=== PATIENT | male | born 1945 | race Caucasian/White ===

== ENCOUNTER 2021-04-01 13:56 | Inpatient (IN) | payer MEDICARE, OTHER ==
[~2021-04-01] VITALS: Ht 165.1 cm; Wt 70.5 kg
[2021-04-01] MEDS ORDERED: ATOR10TA60 PO (14:36)
[2021-04-01] MEDS ORDERED: OMEG1CAP50 PO (14:36)
[2021-04-01] MEDS ORDERED: MELA10CA PO (14:36)
[2021-04-01] MEDS ORDERED: BISA10SU4 RC (14:36)
[2021-04-01] MEDS ORDERED: ROPI0.5T4 PO (14:36)
[2021-04-01] MEDS ORDERED: ASPI-630 PO (14:36)
[2021-04-01] MEDS ORDERED: METO25TA4 PO (14:36)
[2021-04-01] MEDS ORDERED: MAGN24003 PO (14:36)
[2021-04-01] MEDS ORDERED: LORA2ORA8 IM (14:36)
[2021-04-01] MEDS ORDERED: [UNRECOGNIZED DRUG - CODE] PO (14:36)
[2021-04-01] MEDS ORDERED: DIVA500T2 PO (14:36)
[2021-04-01] MEDS ORDERED: DONE10TA7 PO (14:36)
[2021-04-01] MEDS ORDERED: POLY17PO5 PO (14:36)
[2021-04-01] MEDS ORDERED: CLOP75TA PO (14:36)
[2021-04-01] MEDS ORDERED: HALOPERIDOL 5 MG/ML IM (14:36)
[2021-04-01] MEDS ORDERED: NIAC500T PO (14:36)
--- NOTE | 2021-04-01 15:27 | NUR ---
Nsg Note; Admission Admission Note with Justification for Admission to [facility] Patient admitted to [facility] for protective oversight for emergency stabilization of acute psychiatric crisis. Pt admitted from: [facility] Mode of arrival: Secure Transport Accompanied By: Secure Transport Precipitating behaviors that initiated intake and admission: resistive and combative with cares, screaming/yelling/cursing, hitting staff Description of failure of out patient attempts at stabilization in previous setting list behavior and medication trials: medication changes, IM psych meds, ER visit, allowed to sleep late Behaviors and assessment findings upon admission: resistive, not talkative, answered name as "Bill Seven", Plan: Admit for protective oversight for adjustment and stabilization of medications, behaviors and mood. Intense treatment regimen including groups, medication adjustments, therapy, consistent regimen for ADL's, self care, and sleep hygiene. Daily monitoring by Inpatient staff, Psychiatry, and Medical Physician. Pt arrived at 1500 via amb accomp by transport personnel. Report received from Stacey HERR at [facility] at 0161
[2021-04-01] MEDS ORDERED: MAGNESIUM HYDROXIDE 2,400 MG/30 ML ORAL.SUSP. PO PRN (15:45)
[2021-04-01] MEDS ORDERED: METHYL SALICYLATE/MENTHOL TOPICAL OINTMENT 57GM TUBE. TP PRN (15:45)
[2021-04-01] MEDS ORDERED: ACETAMINOPHEN 325 MG TABLET PO PRN (15:45)
[2021-04-01] MEDS ORDERED: MAG HYDROX/AL HYDROX/SIMETH 30 ML ORAL.SUSP PO PRN (15:45)
[2021-04-01] MEDS ORDERED: BISACODYL 10 MG SUPP.RECT RC PRN (16:00)
[2021-04-01] MEDS ORDERED: POLYETHYLENE GLYCOL 3350 17 GM PACKET. PO PRN (16:00)
[2021-04-01 16:09] VITALS: BP 103/66
[2021-04-01 18:24] LABS: BASO # 0.1 x10^3/uL (0.0-0.2); BASO % 1 % (0-3); EOS # 0.1 x10^3/uL (0.0-0.7); EOS % 1 % (0-3); HEMATOCRIT 41.4 % (39.0-53.0); HEMOGLOBIN 13.4 g/dL (13.0-17.5); LYMPH # 1.1 x10^3/uL (1.0-4.8); LYMPH % 12 % (24-48); MEAN CORPUSCULAR HEMOGLOBIN 31 pg (25-35); MEAN CORPUSCULAR HGB CONC 33 g/dL (31-37); MEAN CORPUSCULAR VOLUME 96 fL (79-100); MONO # 1.1 x10^3/uL (0.0-1.1); MONO % 12 % (0-9); NEUT # 6.8 x10^3uL (1.8-7.7); NEUT % 75 % (31-73); PLATELET COUNT 192 x10^3/uL (140-400); RED BLOOD COUNT 4.31 x10^6/uL (4.30-5.70); RED CELL DISTRIBUTION WIDTH 14.5 % (11.5-14.5)
[2021-04-01 18:41] LABS: ALBUMIN 3.3 g/dL (3.4-5.0); ALBUMIN/GLOBULIN RATIO 0.8 (1.0-1.7); ALK PHOS 83 U/L (46-116); ALT (SGPT) 22 U/L (16-63); ANION GAP -1 (6-14); AST (SGOT) 14 U/L (15-37); BLOOD UREA NITROGEN 42 mg/dL (8-26); BUN/CREATININE RATIO 18 (6-20); CALCIUM 9.1 mg/dL (8.5-10.1); CARBON DIOXIDE 27 mmol/L (21-32); CHLORIDE 106 mmol/L (98-107); CREATININE 2.3 mg/dL (0.7-1.3); GFR 27.7; GLUCOSE 122 mg/dL (70-99); MAGNESIUM 2.6 mg/dL (1.8-2.4); POTASSIUM 4.5 mmol/L (3.5-5.1); SODIUM 132 mmol/L (136-145); TOTAL BILIRUBIN 0.2 mg/dL (0.2-1.0); TOTAL PROTEIN 7.3 g/dL (6.4-8.2)
[2021-04-01 19:01] LABS: VAL ACID 54 mcg/mL (50-100)
[2021-04-01] MEDS: MELATONIN 3 MG TABLET PO SCH (20:47)
[2021-04-01] MEDS: NIACIN ER 500 MG TABLET.ER PO SCH (20:48)
[2021-04-01] MEDS: rOPINIRole 0.5 MG TABLET. PO SCH (20:48)
[2021-04-01] MEDS: METOPROLOL TART IMMED RELEASE 25 MG TABLET. PO SCH (20:48)
[2021-04-01] MEDS: DIVALPROEX 125 MG CAP.SPRINK PO SCH (20:49)
[2021-04-01] MEDS ORDERED: DIVALPROEX SODIUM 125 MG TABLET.DR. PO SCH (21:00)
--- NOTE | 2021-04-01 21:16 | PDOC ---
Exam Note: Perfecto Note: Please also refer to the separate dictated note~for this date of service dictated separately.~Patient seen individually. Discussed the patient with Nursing staff reviewed the chart.~Reviewed interim history and current functioning. Reviewed vital signs,~Labs/ Radiology~and current medications noted below. Continue current treatment with the changes noted in the dictated addendum note Assessment: Vital Signs/I&O: Vital Signs Date Time Temp Pulse Resp B/P (MAP) Pulse Ox O2 Delivery O2 Flow Rate FiO2 04/01/21 20:48 75 103/66 04/01/21 16:09 97.2 20 98 Labs: Laboratory Tests Test 04/01/21 18:10 White Blood Count 9.0 x10^3/uL (4.0-11.0) Red Blood Count 4.31 x10^6/uL (4.30-5.70) Hemoglobin 13.4 g/dL (13.0-17.5) Hematocrit 41.4 % (39.0-53.0) Mean Corpuscular Volume 96 fL (79-100) Mean Corpuscular Hemoglobin 31 pg (25-35) Mean Corpuscular Hemoglobin Concent 33 g/dL (31-37) Red Cell Distribution Width 14.5 % (11.5-14.5) Platelet Count 192 x10^3/uL (140-400) Neutrophils (%) (Auto) 75 % (31-73) H Lymphocytes (%) (Auto) 12 % (24-48) L Monocytes (%) (Auto) 12 % (0-9) H Eosinophils (%) (Auto) 1 % (0-3) Basophils (%) (Auto) 1 % (0-3) Neutrophils # (Auto) 6.8 x10^3uL (1.8-7.7) Lymphocytes # (Auto) 1.1 x10^3/uL (1.0-4.8) Monocytes # (Auto) 1.1 x10^3/uL (0.0-1.1) Eosinophils # (Auto) 0.1 x10^3/uL (0.0-0.7) Basophils # (Auto) 0.1 x10^3/uL (0.0-0.2) D-Dimer (Rosalind) 2.00 mg/L (0.00-0.50) H Sodium Level 132 mmol/L (136-145) L Potassium Level 4.5 mmol/L (3.5-5.1) Chloride Level 106 mmol/L (98-107) Carbon Dioxide Level 27 mmol/L (21-32) Anion Gap -1 (6-14) L Blood Urea Nitrogen 42 mg/dL (8-26) H Creatinine 2.3 mg/dL (0.7-1.3) H Estimated GFR (Cockcroft-Gault) 27.7 BUN/Creatinine Ratio 18 (6-20) Glucose Level 122 mg/dL (70-99) H Calcium Level 9.1 mg/dL (8.5-10.1) Magnesium Level 2.6 mg/dL (1.8-2.4) H Total Bilirubin 0.2 mg/dL (0.2-1.0) Aspartate Amino Transferase (AST) 14 U/L (15-37) L Alanine Aminotransferase (ALT) 22 U/L (16-63) Alkaline Phosphatase 83 U/L (46-116) Total Protein 7.3 g/dL (6.4-8.2) Albumin 3.3 g/dL (3.4-5.0) L Albumin/Globulin Ratio 0.8 (1.0-1.7) L Valproic Acid Level 54 mcg/mL (50-100) Valproic Acid Last Dose Date 04/01/21 Valproic Acid Last Dose Time 0900 Current Medications: Meds: Current Medications Medications (Trade) Dose Ordered Sig/Loretta Route PRN Reason Start Time Stop Time Status Last Admin Dose Admin Metoprolol Tartrate (Lopressor) 12.5 mg BID PO 04/01/21 21:00 04/01/21 20:48 Niacin (Slo-Niacin) 500 mg QHS PO 04/01/21 21:00 04/01/21 20:48 Ropinirole HCl (Requip) 0.5 mg HS PO 04/01/21 21:00 04/01/21 20:48 Melatonin (Melatonin) 9 mg QHS PO 04/01/21 21:00 04/01/21 20:47 Divalproex Sodium (Depakote Sprinkles) 375 mg TID PO 04/01/21 21:00 04/01/21 20:49 I have reviewed the current psychotropics carefully including drug interactions. Risk benefit ratio favors no change other than as noted in my dictated progress note. Diagnosis: Problems: (1) Impulse control disorder (2) Anxiety disorder, unspecified (3) Major neurocognitive disorder GISELL GAXIOLA MD Apr 01, 2021 21:16
--- NOTE | 2021-04-01 22:35 | NUR ---
This evening pt walked quietly in the hallway for several hours without assistance and would sometimes try to open locked doors or move furniture. He had very little response to persons talking to him and did not answer questions. He was cooperative with meds crushed in applesauce then said good after taking them. At [facility] he was not very cooperative and tried to hit staff several times. When transferring to bed he would not assist staff at all. He laid quietly in his room for awhile then fell to sleep.
[2021-04-02 06:02] VITALS: BP 174/88
--- NOTE | 2021-04-02 06:14 | NUR ---
Pt has slept well tonight. When awaken for am cares he was combative trying to hit, kick, bite, pinch staff as well a grabbing any hand hold he can find and not letting go. He has great overall strength and required 4 staff to safely perform cares. He remains mainly non verbal only said a random word. Small healing skin tear on L wrist was opened a few drops of bleeding and sterile bandage applied.
[2021-04-02] MEDS: DIVALPROEX 125 MG CAP.SPRINK PO SCH ×5 (11:04→20:43)
[2021-04-02] MEDS: METOPROLOL TART IMMED RELEASE 25 MG TABLET. PO SCH ×3 (11:05→20:44)
[2021-04-02] MEDS: OMEGA-3 FATTY ACIDS/FISH OIL 1,000 MG CAPSULE. PO SCH ×2 (11:07→11:30)
[2021-04-02] MEDS: ATORVASTATIN CALCIUM 10 MG TABLET. PO SCH ×2 (11:07→11:30)
[2021-04-02] MEDS: ASPIRIN CHEWABLE 81 MG TABLET. PO SCH ×2 (11:07→11:30)
[2021-04-02] MEDS: DONEPEZIL HCL 10 MG TABLET PO SCH ×2 (11:07→11:30)
[2021-04-02] MEDS: CLOPIDOGREL BISULFATE 75 MG TABLET PO SCH ×2 (11:07→11:30)
[2021-04-02] MEDS: PSYLLIUM SEED (WITH SUGAR) PACKET. PO SCH ×2 (11:08→11:30)
[2021-04-02 12:29] LABS: THYROID STIM HORMONE (TSH) 1.762 uIU/mL (0.358-3.740)
--- NOTE | 2021-04-02 14:49 | CONS ---
DATE OF CONSULTATION: 04/02/2021 ATTENDING PHYSICIAN: Dr. Gaxiola and Dr. Mcdonald. We are asked to see this patient for medical consultation. HISTORY OF PRESENT ILLNESS: The patient is aged 76. He has profound dementia. He lives in a senior living in [place], [place]. His senior living physician is Dr. Travis. He was sent here because he is delusional, combative towards the staff, cursing at them. He is sleeping quite a bit and refuses to cooperate. When I went to see him, he was quite passive, aggressive and not wanting to get up and cooperative. PAST MEDICAL HISTORY: Significant for Parkinson's disease, cardiomyopathy, coronary artery disease, dementia, previous CO, prostate cancer, hypertension, hyperlipidemia. ALLERGIES: He has no known drug allergies. CURRENT MEDICATIONS: Include aspirin, Lipitor, bisacodyl, Plavix, Depakote, Aricept, lorazepam, melatonin, metoprolol, niacin, omega 3 fish oil, MiraLax, psyllium, ropinirole and Haldol p.r.n. SOCIAL HISTORY: He is a nonsmoker or nondrinker. FAMILY HISTORY: Unobtainable. REVIEW OF SYSTEMS: Unobtainable due to the patient's condition. PHYSICAL EXAMINATION: GENERAL: When I saw him, this is an elderly gentleman who is curled up in a position. He refused to follow any commands. VITAL SIGNS: Initial blood pressure was 174/86, pulse is 82 and regular. He was afebrile, oxygen saturation 99% on room air. HEENT: Head is without trauma. Pupils are reactive. Sclerae nonicteric. Oropharynx clear. No obstruction. NECK: Supple. No stridor. LUNGS: Shallow respirations. CARDIOVASCULAR: Regular heart tones. No gallops. Tones are distant. ABDOMEN: Soft. No guarding or rebound tenderness. EXTREMITIES: Show no cyanosis or edema. He is incontinent. NEUROLOGIC: Wearing adult diapers. SKIN: Warm and dry. PERTINENT LABORATORY STUDIES: The hemoglobin is 13.4 g/dL with a white count of 9000. Electrolytes showed a sodium 132 mEq, potassium 4.5 mEq, creatinine is 2.3 mg/dL, BUN 42. I do not know what his baseline is. ASSESSMENT: 1. This 76-year-old gentleman has profound dementia with behavioral issues, agitation and oppositional defiant behavior. 2. Chronic kidney disease stage 3. I do not know what his baseline is. 3. Essential hypertension. 4. Generalized debilitation. RECOMMENDATIONS: 1. I have reviewed his medication. At this time, there does not appear to be any antihypertensive meds that will cause his creatinine be elevated. These other meds should be continued as same. 2. He is stable from medical standpoint. Thank you again for asking me to see the patient for medical consultation. We shall gladly follow along during his inpatient stay, he is a DNR per advanced directive, we will respect these wishes. JEANNETTE/KIYA/PATRICE DR: Trish TID: [id number] CC: GISELL GAXIOLA MD
[2021-04-02 15:29] VITALS: BP 145/84
--- NOTE | 2021-04-02 17:29 | HP ---
DATE OF SERVICE: 04/02/2021 ADMIT DATE: 04/01/2021 PSYCHIATRIC ADMISSION HISTORY/EVALUATION This is a late entry, date of service 04/01/2021, covers elements not covered in my initial note 04/01/2021. I met with the patient on the evening of 04/01 for this evaluation. IDENTIFYING DATA: Previously discussed with Jacey Meyer, field marketing coordinator and nursing staff and reviewed information from [facility] where the patient was residing and referred to us by his primary care physician. The patient has a history of major neurocognitive disorder, Alzheimer's, vascular with delusion, depression. He has been extremely agitated at the facility, combative with staff and with cares, delusional, cursing, screaming, injuring himself. Behaviors were deemed unmanageable, dangerous having failed outpatient psychiatric interventions. He is referred for inpatient psychiatric stabilization. CHIEF COMPLAINT: "No." The patient is extremely confused, bent over a heavy chair in the hallway, trying to lift it. Totally oblivious of his surroundings unable to respond to my repeated questioning about orientation questions and would not even respond when asked about his last name. HISTORY OF PRESENT ILLNESS: The patient has a history of dementia, Alzheimer's, vascular type. He has been residing at the above facility for some time, but recently getting more confused, agitated, paranoid, delusional. He has had some sleep and appetite changes. Appeared psychotic aggressive, disruptive and dangerous in his behaviors. No clear history of bipolar disorder, suicidal or homicidal ideation. PAST PSYCHIATRIC HISTORY: As above. MEDICAL HISTORY: Frequent constipation, hypertension, hyperlipidemia, status post HI, chronic kidney disease, CA prostate, cardiomyopathy. ACCU-CHEKS: None. CODE STATUS: DNR. DIET: Regular finger foods. Takes medications crushed in hidden. Ambulates independently. CURRENT PSYCHOTROPICS: Depakote 375 mg t.i.d., melatonin 10 mg at bedtime, Requip 0.5 mg at bedtime, Aricept 10 mg a day. FAMILY HISTORY: Noncontributory. SOCIAL HISTORY: No history of alcohol, drug abuse, physical, sexual, elder abuse history is noted. He is not known to be a perpetrator. REACTION TO HOSPITALIZATION: The patient oblivious of it. ASSETS: Stable living at the facility, supportive family. REVIEW OF SYSTEMS: No CV, , pulmonary, eye, ENT system symptoms on review. Reliability poor. MENTAL STATUS EXAM: Oriented to himself. Insight, judgment, recent and remote memory, attention, concentration, fund of knowledge poor consistent with his diagnosis. IMPRESSION: Major neurocognitive disorder, Alzheimer, vascular with delusion, depression, behavioral disturbance, anxiety disorder, unspecified; impulse control disorder, unspecified. Rest as above. PLAN: Admit to Geropsychiatry Unit at [facility]. I will see the patient daily individually from a psychiatric standpoint, medical followup with Dr. Ortega/Dr. Mcdonald. Continue patient on his current psychotropics. Observe baseline and then adjust psychotropics as clinically indicated. ESTIMATED LENGTH OF STAY: 10-12 days. DISPOSITION PLANS: Back to nursing facility when stable. VIVIANE DR: Chuck TID: [id number]
--- NOTE | 2021-04-02 18:30 | NUR ---
Patient slept until just after 1600. At that time staff got him out of bed, he was combative with cares, attempting to hit, bite, and kick staff. His brief and clothes were changed, and then he was sat on the opposite bed and his bed was stripped. About ten minutes later, staff reported he was bleeding; on inspection patient had a skin tear on the posterior, medial edge of his left hand about the size of a dime. Wound was cleaned and dressed. Patient remained withdrawn to his room for the remainder of the shift. Will continue to monitor and report to oncoming shift.
[2021-04-02] MEDS: MELATONIN 3 MG TABLET PO SCH (20:43)
[2021-04-02] MEDS: NIACIN ER 500 MG TABLET.ER PO SCH (20:44)
[2021-04-02] MEDS: rOPINIRole 0.5 MG TABLET. PO SCH (20:44)
--- NOTE | 2021-04-02 21:14 | PDOC ---
Exam Note: Perfecto Note: Please also refer to the separate dictated note~for this date of service dictated separately.~Patient seen individually. Discussed the patient with Nursing staff reviewed the chart.~Reviewed interim history and current functioning. Reviewed vital signs,~Labs/ Radiology~and current medications noted below. Continue current treatment with the changes noted in the dictated addendum note Assessment: Vital Signs/I&O: Vital Signs Date Time Temp Pulse Resp B/P (MAP) Pulse Ox O2 Delivery O2 Flow Rate FiO2 04/02/21 20:44 92 145/84 04/02/21 15:29 97.9 18 96 Room Air I & O 04/01/21 04/01/21 04/02/21 15:00 23:00 07:00 Intake Total 0 ml Balance 0 ml Current Medications: Meds: Current Medications Medications (Trade) Dose Ordered Sig/Loretta Route PRN Reason Start Time Stop Time Status Last Admin Dose Admin Acetaminophen (Tylenol) 650 mg PRN Q6HRS PRN PO MILD PAIN / TEMP > 100.3'F 04/01/21 15:45 Multi-Ingredient Ointment (Analgesic [place]) 1 gaurav PRN QID PRN TP MUSCLE PAIN 04/01/21 15:45 Al Hydroxide/Mg Hydroxide (Mylanta Plus Xs) 15 ml PRN AFTMEALHC PRN PO DYSPEPSIA 04/01/21 15:45 Magnesium Hydroxide (Milk Of Magnesia) 2,400 mg PRN QHS PRN PO CONSTIPATION 04/01/21 15:45 Aspirin (Aspirin Chewable) 81 mg DAILY PO 04/02/21 09:00 Atorvastatin Calcium (Lipitor) 10 mg DAILY PO 04/02/21 09:00 Bisacodyl (Dulcolax Supp) 10 mg PRN DAILY PRN RC CONSTIPATION 04/01/21 16:00 Clopidogrel Bisulfate (Plavix) 75 mg DAILY PO 04/02/21 09:00 Donepezil HCl (Aricept) 10 mg DAILY PO 04/02/21 09:00 Metoprolol Tartrate (Lopressor) 12.5 mg BID PO 04/01/21 21:00 04/02/21 20:44 Niacin (Slo-Niacin) 500 mg QHS PO 04/01/21 21:00 04/02/21 20:44 Fish Oil (Fish Oil) 2,000 mg DAILY PO 04/02/21 09:00 04/02/21 19:15 DC Polyethylene Glycol (miraLAX) 17 gm PRN DAILY PRN PO CONSTIPATION 04/01/21 16:00 Ropinirole HCl (Requip) 0.5 mg HS PO 04/01/21 21:00 04/02/21 20:44 Divalproex Sodium (Depakote) 375 mg TID PO 04/01/21 21:00 04/01/21 20:03 DC Melatonin (Melatonin) 9 mg QHS PO 04/01/21 21:00 04/02/21 20:43 Psyllium Hydrophilic Mucilloid (Metamucil) 1 pkt DAILY PO 04/02/21 09:00 Divalproex Sodium (Depakote Sprinkles) 375 mg TID PO 04/01/21 21:00 04/02/21 20:43 I have reviewed the current psychotropics carefully including drug interactions. Risk benefit ratio favors no change other than as noted in my dictated progress note. Diagnosis: Problems: (1) Dementia in Alzheimer's disease with depression (2) Dementia in Alzheimer's disease with delusions (3) Dementia of the Alzheimer's type with early onset with behavioral disturbance (4) Dementia, vascular, with delusions (5) Dementia, vascular, with depression (6) Major neurocognitive disorder (7) Anxiety disorder, unspecified (8) Impulse control disorder GISELL GAXIOLA MD Apr 02, 2021 21:14
--- NOTE | 2021-04-02 23:46 | NUR ---
Pt located in his room this evening. Pt had a late dinner tray in his room. Pt found to have opened a skin tear on his left wrist that bled onto his clothes and bed. Pt extremely resistive and combative with cleaning him and changing his bed sheets. Pt hit and kicked HAND DEVELOPER during cares. Compliant with crushed medications. Pt currently sleeping in bed.
[2021-04-03 02:13] LABS: THYROXINE 5.4 ug/dL (4.5-12.0)
[2021-04-03 05:44] LABS: HEMOGLOBIN A1C 6.3 % (4.8-5.6)
[2021-04-03 06:05] VITALS: BP 148/90
[2021-04-03] MEDS: DONEPEZIL HCL 10 MG TABLET PO SCH (09:00)
[2021-04-03] MEDS: SERTRALINE 25 MG TABLET. PO SCH (09:00)
[2021-04-03] MEDS: ASPIRIN CHEWABLE 81 MG TABLET. PO SCH (09:00)
[2021-04-03] MEDS: METOPROLOL TART IMMED RELEASE 25 MG TABLET. PO SCH ×2 (09:00→21:00)
[2021-04-03] MEDS: DIVALPROEX 125 MG CAP.SPRINK PO SCH ×2 (09:00→14:00)
[2021-04-03] MEDS: ATORVASTATIN CALCIUM 10 MG TABLET. PO SCH (09:00)
[2021-04-03] MEDS: PSYLLIUM SEED (WITH SUGAR) PACKET. PO SCH (09:00)
[2021-04-03] MEDS: CLOPIDOGREL BISULFATE 75 MG TABLET PO SCH (09:00)
[2021-04-03 16:15] VITALS: BP 133/93
[2021-04-03 18:09] LABS: BILIRUBIN,URINE NEG (NEG); CLARITY,URINE CLOUDY; COLOR,URINE YELLOW; GLUCOSE,URINE NEG (NEG); NITRITE,URINE NEG (NEG); UROBILINOGEN,URINE 0.2 mg/dL (0.2 mg/dL)
[2021-04-03 18:10] LABS: BACTERIA,URINE MANY /HPF (0-FEW); SQUAMOUS EPITHELIAL CELL,UR OCC /LPF; WBC,URINE TNTC /HPF (0-4)
[2021-04-03 19:53] LABS: BASO # 0.1 x10^3/uL (0.0-0.2); BASO % 1 % (0-3); EOS % 0 % (0-3); HEMOGLOBIN 14.4 g/dL (13.0-17.5); LYMPH # 1.1 x10^3/uL (1.0-4.8); LYMPH % 12 % (24-48); MEAN CORPUSCULAR HEMOGLOBIN 32 pg (25-35); MEAN CORPUSCULAR HGB CONC 34 g/dL (31-37); MEAN CORPUSCULAR VOLUME 94 fL (79-100); MONO # 0.9 x10^3/uL (0.0-1.1); MONO % 10 % (0-9); NEUT # 6.9 x10^3uL (1.8-7.7); NEUT % 77 % (31-73); PLATELET COUNT 196 x10^3/uL (140-400); RED BLOOD COUNT 4.55 x10^6/uL (4.30-5.70); RED CELL DISTRIBUTION WIDTH 13.9 % (11.5-14.5)
[2021-04-03 20:14] LABS: CALCIUM 9.2 mg/dL (8.5-10.1); CREATININE 1.9 mg/dL (0.7-1.3); GFR 34.5; POTASSIUM 4.3 mmol/L (3.5-5.1)
[2021-04-03 20:16] LABS: ALBUMIN 3.4 g/dL (3.4-5.0); ALBUMIN/GLOBULIN RATIO 0.8 (1.0-1.7); TOTAL BILIRUBIN 0.3 mg/dL (0.2-1.0); TOTAL PROTEIN 7.6 g/dL (6.4-8.2)
[2021-04-03 20:22] VITALS: BP 153/89
[2021-04-03 20:25] VITALS: BP 163/89
[2021-04-03] MEDS: NIACIN ER 500 MG TABLET.ER PO SCH (21:00)
[2021-04-03] MEDS: MELATONIN 3 MG TABLET PO SCH (21:00)
[2021-04-03] MEDS: rOPINIRole 0.5 MG TABLET. PO SCH (21:00)
--- NOTE | 2021-04-03 21:04 | PDOC ---
Exam Note: Perfecto Note: Please also refer to the separate dictated note~for this date of service dictated separately.~Patient seen individually. Discussed the patient with Nursing staff reviewed the chart.~Reviewed interim history and current functioning. Reviewed vital signs,~Labs/ Radiology~and current medications noted below. Continue current treatment with the changes noted in the dictated addendum note Assessment: Vital Signs/I&O: Vital Signs Date Time Temp Pulse Resp B/P (MAP) Pulse Ox O2 Delivery O2 Flow Rate FiO2 04/03/21 20:25 92 18 163/89 (113) 99 Room Air 04/03/21 20:22 97.9 I & O 04/02/21 04/02/21 04/03/21 15:00 23:00 07:00 Intake Total 0 ml 480 ml Balance 0 ml 480 ml Labs: Laboratory Tests Test 04/03/21 17:00 04/03/21 19:43 Urine Collection Type Clean catch Urine Color Yellow Urine Clarity Cloudy Urine pH 5.5 Urine Specific [place] 1.025 Urine Protein 30 mg/dl (NEG-TRACE) Urine Glucose (UA) Neg mg/dL (NEG) Urine Ketones (Stick) 40 mg/dL (NEG) Urine Blood Small (NEG) Urine Nitrite Neg (NEG) Urine Bilirubin Neg (NEG) Urine Urobilinogen Dipstick 0.2 mg/dL (0.2 mg/dL) Urine Leukocyte Esterase Large (NEG) Urine RBC 6-10 /HPF (0-2) Urine WBC Tntc /HPF (0-4) Urine Squamous Epithelial Cells Occ /LPF Urine Bacteria Many /HPF (0-FEW) White Blood Count 9.0 x10^3/uL (4.0-11.0) Red Blood Count 4.55 x10^6/uL (4.30-5.70) Hemoglobin 14.4 g/dL (13.0-17.5) Hematocrit 43.0 % (39.0-53.0) Mean Corpuscular Volume 94 fL (79-100) Mean Corpuscular Hemoglobin 32 pg (25-35) Mean Corpuscular Hemoglobin Concent 34 g/dL (31-37) Red Cell Distribution Width 13.9 % (11.5-14.5) Platelet Count 196 x10^3/uL (140-400) Neutrophils (%) (Auto) 77 % (31-73) H Lymphocytes (%) (Auto) 12 % (24-48) L Monocytes (%) (Auto) 10 % (0-9) H Eosinophils (%) (Auto) 0 % (0-3) Basophils (%) (Auto) 1 % (0-3) Neutrophils # (Auto) 6.9 x10^3uL (1.8-7.7) Lymphocytes # (Auto) 1.1 x10^3/uL (1.0-4.8) Monocytes # (Auto) 0.9 x10^3/uL (0.0-1.1) Eosinophils # (Auto) 0.0 x10^3/uL (0.0-0.7) Basophils # (Auto) 0.1 x10^3/uL (0.0-0.2) Sodium Level 144 mmol/L (136-145) Potassium Level 4.3 mmol/L (3.5-5.1) Chloride Level 109 mmol/L (98-107) H Carbon Dioxide Level 21 mmol/L (21-32) Anion Gap 14 (6-14) Blood Urea Nitrogen 33 mg/dL (8-26) H Creatinine 1.9 mg/dL (0.7-1.3) H Estimated GFR (Cockcroft-Gault) 34.5 BUN/Creatinine Ratio 17 (6-20) Glucose Level 112 mg/dL (70-99) H Calcium Level 9.2 mg/dL (8.5-10.1) Total Bilirubin 0.3 mg/dL (0.2-1.0) Aspartate Amino Transferase (AST) 26 U/L (15-37) Alanine Aminotransferase (ALT) 28 U/L (16-63) Alkaline Phosphatase 93 U/L (46-116) Total Protein 7.6 g/dL (6.4-8.2) Albumin 3.4 g/dL (3.4-5.0) Albumin/Globulin Ratio 0.8 (1.0-1.7) L Current Medications: Meds: Laboratory Tests Test 04/03/21 17:00 04/03/21 19:43 Urine Collection Type Clean catch Urine Color Yellow Urine Clarity Cloudy Urine pH 5.5 Urine Specific [place] 1.025 Urine Protein 30 mg/dl Urine Glucose (UA) Neg mg/dL Urine Ketones (Stick) 40 mg/dL Urine Blood Small Urine Nitrite Neg Urine Bilirubin Neg Urine Urobilinogen Dipstick 0.2 mg/dL Urine Leukocyte Esterase Large Urine RBC 6-10 /HPF Urine WBC Tntc /HPF Urine Squamous Epithelial Cells Occ /LPF Urine Bacteria Many /HPF White Blood Count 9.0 x10^3/uL Red Blood Count 4.55 x10^6/uL Hemoglobin 14.4 g/dL Hematocrit 43.0 % Mean Corpuscular Volume 94 fL Mean Corpuscular Hemoglobin 32 pg Mean Corpuscular Hemoglobin Concent 34 g/dL Red Cell Distribution Width 13.9 % Platelet Count 196 x10^3/uL Neutrophils (%) (Auto) 77 % Lymphocytes (%) (Auto) 12 % Monocytes (%) (Auto) 10 % Eosinophils (%) (Auto) 0 % Basophils (%) (Auto) 1 % Neutrophils # (Auto) 6.9 x10^3uL Lymphocytes # (Auto) 1.1 x10^3/uL Monocytes # (Auto) 0.9 x10^3/uL Eosinophils # (Auto) 0.0 x10^3/uL Basophils # (Auto) 0.1 x10^3/uL Sodium Level 144 mmol/L Potassium Level 4.3 mmol/L Chloride Level 109 mmol/L Carbon Dioxide Level 21 mmol/L Anion Gap 14 Blood Urea Nitrogen 33 mg/dL Creatinine 1.9 mg/dL Estimated GFR (Cockcroft-Gault) 34.5 BUN/Creatinine Ratio 17 Glucose Level 112 mg/dL Calcium Level 9.2 mg/dL Total Bilirubin 0.3 mg/dL Aspartate Amino Transf (AST/SGOT) 26 U/L Alanine Aminotransferase (ALT/SGPT) 28 U/L Alkaline Phosphatase 93 U/L Total Protein 7.6 g/dL Albumin 3.4 g/dL Albumin/Globulin Ratio 0.8 Current Medications Medications (Trade) Dose Ordered Sig/Loretta Route PRN Reason Start Time Stop Time Status Last Admin Dose Admin Acetaminophen (Tylenol) 650 mg PRN Q6HRS PRN PO MILD PAIN / TEMP > 100.3'F 04/01/21 15:45 Multi-Ingredient Ointment (Analgesic [place]) 1 gaurav PRN QID PRN TP MUSCLE PAIN 04/01/21 15:45 Al Hydroxide/Mg Hydroxide (Mylanta Plus Xs) 15 ml PRN AFTMEALHC PRN PO DYSPEPSIA 04/01/21 15:45 Magnesium Hydroxide (Milk Of Magnesia) 2,400 mg PRN QHS PRN PO 2nd choice CONSTIPATION 04/01/21 15:45 Aspirin (Aspirin Chewable) 81 mg DAILY PO 04/02/21 09:00 Atorvastatin Calcium (Lipitor) 10 mg DAILY PO 04/02/21 09:00 Bisacodyl (Dulcolax Supp) 10 mg PRN DAILY PRN RC CONSTIPATION 04/01/21 16:00 Clopidogrel Bisulfate (Plavix) 75 mg DAILY PO 04/02/21 09:00 Donepezil HCl (Aricept) 10 mg DAILY PO 04/02/21 09:00 Metoprolol Tartrate (Lopressor) 12.5 mg BID PO 04/01/21 21:00 04/02/21 20:44 Niacin (Slo-Niacin) 500 mg QHS PO 04/01/21 21:00 04/02/21 20:44 Fish Oil (Fish Oil) 2,000 mg DAILY PO 04/02/21 09:00 04/02/21 19:15 DC Polyethylene Glycol (miraLAX) 17 gm PRN DAILY PRN PO 1st choice CONSTIPATION 04/01/21 16:00 Ropinirole HCl (Requip) 0.5 mg HS PO 04/01/21 21:00 04/02/21 20:44 Divalproex Sodium (Depakote) 375 mg TID PO 04/01/21 21:00 04/01/21 20:03 DC Melatonin (Melatonin) 9 mg QHS PO 04/01/21 21:00 04/02/21 20:43 Psyllium Hydrophilic Mucilloid (Metamucil) 1 pkt DAILY PO 04/02/21 09:00 Divalproex Sodium (Depakote Sprinkles) 375 mg TID PO 04/01/21 21:00 04/03/21 19:35 DC 04/03/21 14:00 Olanzapine (ZyPREXA ZYDIS) 2.5 mg PRN Q2HR PRN PO PSYCHOSIS 04/02/21 23:00 Sertraline HCl (Zoloft) 25 mg DAILY PO 04/03/21 09:00 04/05/21 09:01 Sertraline HCl (Zoloft) 50 mg DAILY PO 04/06/21 09:00 I have reviewed the current psychotropics carefully including drug interactions. Risk benefit ratio favors no change other than as noted in my dictated progress note. Diagnosis: Problems: (1) Impulse control disorder (2) Anxiety disorder, unspecified (3) Major neurocognitive disorder (4) Dementia, vascular, with depression (5) Dementia, vascular, with delusions (6) Dementia in Alzheimer's disease with depression (7) Dementia in Alzheimer's disease with delusions (8) Dementia of the Alzheimer's type with early onset with behavioral disturbance GISELL GAXIOLA MD Apr 03, 2021 21:04
--- NOTE | 2021-04-03 22:16 | NUR ---
Pt located in his room sleeping in bed. According to dayshift RN, pt slept the majority of the day and did not wake up to eat his meals. Straight cath performed and pt was not combative during procedure. Urine culture pending. This evening, pt continues to sleep, arousing to his name. VS taken. Stat labs ordered. Labs WNL at this time. HS medications held d/t pt's condition. Will continue to monitor.
[2021-04-04 05:44] VITALS: BP 138/87
[2021-04-04] MEDS: PSYLLIUM SEED (WITH SUGAR) PACKET. PO SCH (09:00)
--- NOTE | 2021-04-04 10:17 | NUR ---
PATIENT IS ASLEEP IN A BED THIS AM, REFUSING TO OPEN HIS EYES AND COMMUNICATE UPON ASSESSMENT, PULLING HIS BLANKETS BACK TO COVER HIMSELF, NOT TAKING HIS MEDICATIONS. DR COX SAW THE PATIENT THIS AM AND IS NOT CONCERN AT THIS TIME, STATED HIS LABS IMPROVED, STILL AWAITING FOR UA CULTURE.
--- NOTE | 2021-04-04 12:52 | NUR ---
WEEKLY ACTIVITY THERAPY NOTE Date of Admission:04/01/21 Date of AT Assessment: TBD Precipitating behaviors that initiated intake and admission:resistive and combative with cares, screaming/yelling/cursing, hitting staff Goal aimed: TBD Initial Goal: TBD Weekly progress towards goal: NA Group participation level: NA Weekly highlights: arrived on [facility] Behaviors observed: Plan: meet/assess pt Beneficial adaptations: TBD
--- NOTE | 2021-04-04 13:15 | NUR ---
ACTIVITY THERAPY ASSESSMENT Completed based on observation, notes and interview. Pt was in his bed, with his eyes closed and was delayed in responding to DREDGE RUNNER. He had some tactile hallucinations throughout the interview and kept his eyes closed the entire time but answered yes/no to a couple questions. He indicated he was hungry and was agreeable to have the head of his bed raised to drink an Ensure. He also indicated he enjoys Country/Western music and staff addressed him as "Bill." He is not into reading. Reports indicate he is combative with cares and at times does not response to questions/ staff. He is mostly withdrawn. Initial goal aimed to increase stimulation: Pt. will participate in at least three Activity Therapy sessions before discharge.
[2021-04-04] MEDS: CLOPIDOGREL BISULFATE 75 MG TABLET PO SCH (13:35)
[2021-04-04] MEDS: ATORVASTATIN CALCIUM 10 MG TABLET. PO SCH (13:35)
[2021-04-04] MEDS: SERTRALINE 25 MG TABLET. PO SCH (13:35)
[2021-04-04] MEDS: METOPROLOL TART IMMED RELEASE 25 MG TABLET. PO SCH ×2 (13:36→20:28)
[2021-04-04] MEDS: DONEPEZIL HCL 10 MG TABLET PO SCH (13:36)
[2021-04-04] MEDS: ASPIRIN CHEWABLE 81 MG TABLET. PO SCH (13:37)
--- NOTE | 2021-04-04 14:31 | NUR ---
Treatment team update: Pt is eating roughly 25% of meals and reportedly sleeping on average 7.25 hours per night. Nursing reports that pt essentially slept all night and was currently sleeping while treatment team met. Pt did not eat this morning, did not get up for lunch, nor has he taken any medications today. Pt labs have improved; however, pt does have a pending UA culture waiting and there are concerns that pt does have a major UTI causing the lethargy seen in pt. Pt does get resistive to cares but has a very difficult time answering questions. Pt came from a home plus setting and may need a higher level of care at the time of discharge. SW will evaluate pt needs with the family and his facility. PINA for the latter part of next week.
[2021-04-04 15:28] VITALS: BP 131/82
--- NOTE | 2021-04-04 15:50 | NUR ---
SW attempted to contact pt dtr Adrianna to complete PSA. SW left a message asking Adrianna to contact SW when possible.
[2021-04-04] MEDS: MELATONIN 3 MG TABLET PO SCH (20:27)
[2021-04-04] MEDS: rOPINIRole 0.5 MG TABLET. PO SCH (20:27)
[2021-04-04] MEDS: NIACIN ER 500 MG TABLET.ER PO SCH (20:27)
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
--- NOTE | 2021-04-04 22:14 | NUR ---
Pt located in his room laying in bed. Pt arouses to name, but is appearing to play possum. Pt does not respond to assessment questions. Compliant with crushed medications. Resistive, but not combative with shower.
--- NOTE | 2021-04-04 22:42 | PDOC ---
Exam Note: Perfecto Note: This note is a late entry for 04/03/2021 covers elements not covered in my initial note. Subjective: The patient was seen individually in the evening of 04/03/2021 with Betzaida HERR, discussed and reviewed the chart. The patient slept 8-1/4 hours previous night. The patient slept all night and then till 2 p.m. this evening. We have checked UA and that is reflex to culture, probably has significant UTI accounting for his confusion and labs have been checked for sepsis as well. He refused morning medications. UA to be collected with straight catheter. Appetite is poor. Review of Systems: No CV, , pulmonary, eye, ENT system symptoms on review. Reliability poor. Mental Status Exam: The patient is oriented to himself. Insight and judgment, recent and remote memory, attention and concentration, fund of knowledge is poor consistent with his diagnoses. Impression: Major neurocognitive disorder, Alzheimer, vascular with delusion, depression behavioral disturbance. Anxiety disorder unspecified. Impulse control disorder unspecified. Probable UTI. Plan: Continue current psychotropics. Given his significant sedation, stop the Depakote for now. Treat the UTI once the culture returns. Rest unchanged for now. Assessment: Vital Signs/I&O: Vital Signs Date Time Temp Pulse Resp B/P (MAP) Pulse Ox O2 Delivery O2 Flow Rate FiO2 04/04/21 20:28 90 131/82 04/04/21 15:28 98.0 16 95 04/03/21 20:25 Room Air I & O 04/03/21 04/03/21 04/04/21 15:00 23:00 07:00 Intake Total 480 ml 0 ml Balance 480 ml 0 ml Current Medications: Meds: Current Medications Medications (Trade) Dose Ordered Sig/Loretta Route PRN Reason Start Time Stop Time Status Last Admin Dose Admin Acetaminophen (Tylenol) 650 mg PRN Q6HRS PRN PO MILD PAIN / TEMP > 100.3'F 04/01/21 15:45 Multi-Ingredient Ointment (Analgesic [place]) 1 gaurav PRN QID PRN TP MUSCLE PAIN 04/01/21 15:45 Al Hydroxide/Mg Hydroxide (Mylanta Plus Xs) 15 ml PRN AFTMEALHC PRN PO DYSPEPSIA 04/01/21 15:45 Magnesium Hydroxide (Milk Of Magnesia) 2,400 mg PRN QHS PRN PO 2nd choice CONSTIPATION 04/01/21 15:45 Aspirin (Aspirin Chewable) 81 mg DAILY PO 04/02/21 09:00 04/04/21 13:37 Atorvastatin Calcium (Lipitor) 10 mg DAILY PO 04/02/21 09:00 04/04/21 13:35 Bisacodyl (Dulcolax Supp) 10 mg PRN DAILY PRN RC CONSTIPATION 04/01/21 16:00 Clopidogrel Bisulfate (Plavix) 75 mg DAILY PO 04/02/21 09:00 04/04/21 13:35 Donepezil HCl (Aricept) 10 mg DAILY PO 04/02/21 09:00 04/04/21 13:36 Metoprolol Tartrate (Lopressor) 12.5 mg BID PO 04/01/21 21:00 04/04/21 20:28 Niacin (Slo-Niacin) 500 mg QHS PO 04/01/21 21:00 04/04/21 20:27 Fish Oil (Fish Oil) 2,000 mg DAILY PO 04/02/21 09:00 04/02/21 19:15 DC Polyethylene Glycol (miraLAX) 17 gm PRN DAILY PRN PO 1st choice CONSTIPATION 04/01/21 16:00 Ropinirole HCl (Requip) 0.5 mg HS PO 04/01/21 21:00 04/04/21 20:27 Divalproex Sodium (Depakote) 375 mg TID PO 04/01/21 21:00 04/01/21 20:03 DC Melatonin (Melatonin) 9 mg QHS PO 04/01/21 21:00 04/04/21 20:27 Psyllium Hydrophilic Mucilloid (Metamucil) 1 pkt DAILY PO 04/02/21 09:00 Divalproex Sodium (Depakote Sprinkles) 375 mg TID PO 04/01/21 21:00 04/03/21 19:35 DC 04/03/21 14:00 Olanzapine (ZyPREXA ZYDIS) 2.5 mg PRN Q2HR PRN PO PSYCHOSIS 04/02/21 23:00 Sertraline HCl (Zoloft) 25 mg DAILY PO 04/03/21 09:00 04/05/21 09:01 04/04/21 13:35 Sertraline HCl (Zoloft) 50 mg DAILY PO 04/06/21 09:00 I have reviewed the current psychotropics carefully including drug interactions. Risk benefit ratio favors no change other than as noted in my dictated progress note. Diagnosis: Problems: (1) UTI (urinary tract infection) (2) Impulse control disorder (3) Anxiety disorder, unspecified (4) Major neurocognitive disorder (5) Dementia, vascular, with depression (6) Dementia, vascular, with delusions (7) Dementia in Alzheimer's disease with depression (8) Dementia in Alzheimer's disease with delusions (9) Dementia of the Alzheimer's type with early onset with behavioral disturbance GISELL GAXIOLA MD Apr 04, 2021 22:42
--- NOTE | 2021-04-04 22:43 | PDOC ---
Exam Note: Perfecto Note: Please also refer to the separate dictated note~for this date of service dictated separately.~Patient seen individually. Discussed the patient with Nursing staff reviewed the chart.~Reviewed interim history and current functioning. Reviewed vital signs,~Labs/ Radiology~and current medications noted below. Continue current treatment with the changes noted in the dictated addendum note Assessment: Vital Signs/I&O: Vital Signs Date Time Temp Pulse Resp B/P (MAP) Pulse Ox O2 Delivery O2 Flow Rate FiO2 04/04/21 20:28 90 131/82 04/04/21 15:28 98.0 16 95 04/03/21 20:25 Room Air I & O 04/03/21 04/03/21 04/04/21 15:00 23:00 07:00 Intake Total 480 ml 0 ml Balance 480 ml 0 ml Current Medications: Meds: Current Medications Medications (Trade) Dose Ordered Sig/Loretta Route PRN Reason Start Time Stop Time Status Last Admin Dose Admin Acetaminophen (Tylenol) 650 mg PRN Q6HRS PRN PO MILD PAIN / TEMP > 100.3'F 04/01/21 15:45 Multi-Ingredient Ointment (Analgesic [place]) 1 gaurav PRN QID PRN TP MUSCLE PAIN 04/01/21 15:45 Al Hydroxide/Mg Hydroxide (Mylanta Plus Xs) 15 ml PRN AFTMEALHC PRN PO DYSPEPSIA 04/01/21 15:45 Magnesium Hydroxide (Milk Of Magnesia) 2,400 mg PRN QHS PRN PO 2nd choice CONSTIPATION 04/01/21 15:45 Aspirin (Aspirin Chewable) 81 mg DAILY PO 04/02/21 09:00 04/04/21 13:37 Atorvastatin Calcium (Lipitor) 10 mg DAILY PO 04/02/21 09:00 04/04/21 13:35 Bisacodyl (Dulcolax Supp) 10 mg PRN DAILY PRN RC CONSTIPATION 04/01/21 16:00 Clopidogrel Bisulfate (Plavix) 75 mg DAILY PO 04/02/21 09:00 04/04/21 13:35 Donepezil HCl (Aricept) 10 mg DAILY PO 04/02/21 09:00 04/04/21 13:36 Metoprolol Tartrate (Lopressor) 12.5 mg BID PO 04/01/21 21:00 04/04/21 20:28 Niacin (Slo-Niacin) 500 mg QHS PO 04/01/21 21:00 04/04/21 20:27 Fish Oil (Fish Oil) 2,000 mg DAILY PO 04/02/21 09:00 04/02/21 19:15 DC Polyethylene Glycol (miraLAX) 17 gm PRN DAILY PRN PO 1st choice CONSTIPATION 04/01/21 16:00 Ropinirole HCl (Requip) 0.5 mg HS PO 04/01/21 21:00 04/04/21 20:27 Divalproex Sodium (Depakote) 375 mg TID PO 04/01/21 21:00 04/01/21 20:03 DC Melatonin (Melatonin) 9 mg QHS PO 04/01/21 21:00 04/04/21 20:27 Psyllium Hydrophilic Mucilloid (Metamucil) 1 pkt DAILY PO 04/02/21 09:00 Divalproex Sodium (Depakote Sprinkles) 375 mg TID PO 04/01/21 21:00 04/03/21 19:35 DC 04/03/21 14:00 Olanzapine (ZyPREXA ZYDIS) 2.5 mg PRN Q2HR PRN PO PSYCHOSIS 04/02/21 23:00 Sertraline HCl (Zoloft) 25 mg DAILY PO 04/03/21 09:00 04/05/21 09:01 04/04/21 13:35 Sertraline HCl (Zoloft) 50 mg DAILY PO 04/06/21 09:00 I have reviewed the current psychotropics carefully including drug interactions. Risk benefit ratio favors no change other than as noted in my dictated progress note. Diagnosis: Problems: (1) Impulse control disorder (2) Anxiety disorder, unspecified (3) Major neurocognitive disorder (4) Dementia, vascular, with depression (5) Dementia, vascular, with delusions (6) Dementia in Alzheimer's disease with depression (7) Dementia in Alzheimer's disease with delusions (8) Dementia of the Alzheimer's type with early onset with behavioral disturbance (9) UTI (urinary tract infection) GISELL GAXIOLA MD Apr 04, 2021 22:43
[2021-04-05 06:14] VITALS: BP 138/73
[2021-04-05] MEDS: PSYLLIUM SEED (WITH SUGAR) PACKET. PO SCH (07:51)
[2021-04-05] MEDS: ATORVASTATIN CALCIUM 10 MG TABLET. PO SCH (07:52)
[2021-04-05] MEDS: SERTRALINE 25 MG TABLET. PO SCH (07:52)
[2021-04-05] MEDS: CLOPIDOGREL BISULFATE 75 MG TABLET PO SCH (07:52)
[2021-04-05] MEDS: METOPROLOL TART IMMED RELEASE 25 MG TABLET. PO SCH ×2 (07:52→20:01)
[2021-04-05] MEDS: ASPIRIN CHEWABLE 81 MG TABLET. PO SCH (07:52)
[2021-04-05] MEDS: DONEPEZIL HCL 10 MG TABLET PO SCH (07:52)
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
--- NOTE | 2021-04-05 14:13 | NUR ---
PATIENT WAS AWAKE IN A BED UPON ASSESSMENT, CONFUSED AND ORIENTED TO SELF ONLY, COMPLIANT WITH MEDICATIONS CRUSHED IN PUDDING. PATIENT WAS OBSERVED LATER IN THE AFTERNOON SITTING IN A CHAIR WITH OTHER RESIDENCE AND STAFF, CHECKING THE NEWSPAPERS, CALM AND QUIET. PATIENT WAS OBSERVED ALSO WALKING DOWN THE HALLWAY WITH STANDBY ASSIST. PATIENT IS CURRENTLY IN A W/C AWAKE WITH CHAIR ALARM APPLIED FOR SAFETY.
[2021-04-05 15:48] VITALS: BP 122/76
[2021-04-05] MEDS: NIACIN ER 500 MG TABLET.ER PO SCH (19:54)
[2021-04-05] MEDS: rOPINIRole 0.5 MG TABLET. PO SCH (19:54)
[2021-04-05] MEDS: MELATONIN 3 MG TABLET PO SCH (19:59)
--- NOTE | 2021-04-05 20:57 | PDOC ---
Exam Note: Perfecto Note: Please also refer to the separate dictated note~for this date of service dictated separately.~Patient seen individually. Discussed the patient with Nursing staff reviewed the chart.~Reviewed interim history and current functioning. Reviewed vital signs,~Labs/ Radiology~and current medications noted below. Continue current treatment with the changes noted in the dictated addendum note Assessment: Vital Signs/I&O: Vital Signs Date Time Temp Pulse Resp B/P (MAP) Pulse Ox O2 Delivery O2 Flow Rate FiO2 04/05/21 20:01 74 122/76 04/05/21 15:48 97.6 18 92 04/03/21 20:25 Room Air I & O 04/04/21 04/04/21 04/05/21 15:00 23:00 07:00 Intake Total 500 ml 0 ml Balance 500 ml 0 ml Current Medications: Meds: Current Medications Medications (Trade) Dose Ordered Sig/Loretta Route PRN Reason Start Time Stop Time Status Last Admin Dose Admin Acetaminophen (Tylenol) 650 mg PRN Q6HRS PRN PO MILD PAIN / TEMP > 100.3'F 04/01/21 15:45 Multi-Ingredient Ointment (Analgesic [place]) 1 gaurav PRN QID PRN TP MUSCLE PAIN 04/01/21 15:45 Al Hydroxide/Mg Hydroxide (Mylanta Plus Xs) 15 ml PRN AFTMEALHC PRN PO DYSPEPSIA 04/01/21 15:45 Magnesium Hydroxide (Milk Of Magnesia) 2,400 mg PRN QHS PRN PO 2nd choice CONSTIPATION 04/01/21 15:45 Aspirin (Aspirin Chewable) 81 mg DAILY PO 04/02/21 09:00 04/05/21 07:52 Atorvastatin Calcium (Lipitor) 10 mg DAILY PO 04/02/21 09:00 04/05/21 07:52 Bisacodyl (Dulcolax Supp) 10 mg PRN DAILY PRN RC CONSTIPATION 04/01/21 16:00 Clopidogrel Bisulfate (Plavix) 75 mg DAILY PO 04/02/21 09:00 04/05/21 07:52 Donepezil HCl (Aricept) 10 mg DAILY PO 04/02/21 09:00 04/05/21 07:52 Metoprolol Tartrate (Lopressor) 12.5 mg BID PO 04/01/21 21:00 04/05/21 20:01 Niacin (Slo-Niacin) 500 mg QHS PO 04/01/21 21:00 04/05/21 19:54 Fish Oil (Fish Oil) 2,000 mg DAILY PO 04/02/21 09:00 04/02/21 19:15 DC Polyethylene Glycol (miraLAX) 17 gm PRN DAILY PRN PO 1st choice CONSTIPATION 04/01/21 16:00 Ropinirole HCl (Requip) 0.5 mg HS PO 04/01/21 21:00 04/05/21 19:54 Divalproex Sodium (Depakote) 375 mg TID PO 04/01/21 21:00 04/01/21 20:03 DC Melatonin (Melatonin) 9 mg QHS PO 04/01/21 21:00 04/05/21 19:59 Psyllium Hydrophilic Mucilloid (Metamucil) 1 pkt DAILY PO 04/02/21 09:00 04/05/21 07:51 Divalproex Sodium (Depakote Sprinkles) 375 mg TID PO 04/01/21 21:00 04/03/21 19:35 DC 04/03/21 14:00 Olanzapine (ZyPREXA ZYDIS) 2.5 mg PRN Q2HR PRN PO PSYCHOSIS 04/02/21 23:00 Sertraline HCl (Zoloft) 25 mg DAILY PO 04/03/21 09:00 04/05/21 09:01 DC 04/05/21 07:52 Sertraline HCl (Zoloft) 50 mg DAILY PO 04/06/21 09:00 I have reviewed the current psychotropics carefully including drug interactions. Risk benefit ratio favors no change other than as noted in my dictated progress note. Diagnosis: Problems: (1) Impulse control disorder (2) Anxiety disorder, unspecified (3) Major neurocognitive disorder (4) Dementia, vascular, with depression (5) Dementia, vascular, with delusions (6) Dementia in Alzheimer's disease with depression (7) Dementia in Alzheimer's disease with delusions (8) Dementia of the Alzheimer's type with early onset with behavioral di sturbance GISELL GAXIOLA MD Apr 05, 2021 20:57
--- NOTE | 2021-04-05 22:13 | NUR ---
Pt located in his room. Pt awake and restless in his bed earlier this evening. Compliant with crushed medications.
[2021-04-06 06:04] VITALS: BP 107/76
--- NOTE | 2021-04-06 07:15 | PDOC ---
Exam Note: Perfecto Note: This note is a late entry for 04/04/2021 covers elements not covered in my initial note. Subjective: The patient was reviewed at treatment team meeting individually in the morning on 04/04/2021 with Leonora Salas, Jacey Torrez, and Melissa Thorne (social insurance specialist), Gogo, activity therapy, Sandra RN, Pig Handler, and Sandra HERR, discussed and reviewed the chart. We discussed the patients diagnoses, progress, current psychotropics. The patient slept 9 hours previous night. Oral intake is poor, often refusing medications. He remains confused, sleeping excessively. He had his flu shot on 02/28/2021. Labs are improved. Reportedly he has [facility]% [facility]. Discussed with Betzaida HERR in the evening. He is resistive to cares. He took his Ensure at 2 p.m. Review of Systems: No CV, , pulmonary, eye, ENT system symptoms on review. Reliability poor. Mental Status Exam: The patient is oriented to himself. Insight and judgment, recent and remote memory, attention and concentration, fund of knowledge is poor consistent with his diagnoses. Impression: Major neurocognitive disorder, Alzheimer, vascular with delusion, depression behavioral disturbance. Anxiety disorder unspecified. Impulse control disorder unspecified. Plan: Continue current psychotropics. Assessment: Vital Signs/I&O: Vital Signs Date Time Temp Pulse Resp B/P (MAP) Pulse Ox O2 Delivery O2 Flow Rate FiO2 04/06/21 06:04 97.4 68 16 107/76 (86) 91 04/03/21 20:25 Room Air I & O 04/05/21 04/05/21 04/06/21 15:00 23:00 07:00 Intake Total 600 ml 0 ml Balance 600 ml 0 ml Current Medications: Meds: Current Medications Medications (Trade) Dose Ordered Sig/Loretta Route PRN Reason Start Time Stop Time Status Last Admin Dose Admin Acetaminophen (Tylenol) 650 mg PRN Q6HRS PRN PO MILD PAIN / TEMP > 100.3'F 04/01/21 15:45 Multi-Ingredient Ointment (Analgesic [place]) 1 gaurav PRN QID PRN TP MUSCLE PAIN 04/01/21 15:45 Al Hydroxide/Mg Hydroxide (Mylanta Plus Xs) 15 ml PRN AFTMEALHC PRN PO DYSPEPSIA 04/01/21 15:45 Magnesium Hydroxide (Milk Of Magnesia) 2,400 mg PRN QHS PRN PO 2nd choice CONSTIPATION 04/01/21 15:45 Aspirin (Aspirin Chewable) 81 mg DAILY PO 04/02/21 09:00 04/05/21 07:52 Atorvastatin Calcium (Lipitor) 10 mg DAILY PO 04/02/21 09:00 04/05/21 07:52 Bisacodyl (Dulcolax Supp) 10 mg PRN DAILY PRN RC CONSTIPATION 04/01/21 16:00 Clopidogrel Bisulfate (Plavix) 75 mg DAILY PO 04/02/21 09:00 04/05/21 07:52 Donepezil HCl (Aricept) 10 mg DAILY PO 04/02/21 09:00 04/05/21 07:52 Metoprolol Tartrate (Lopressor) 12.5 mg BID PO 04/01/21 21:00 04/05/21 20:01 Niacin (Slo-Niacin) 500 mg QHS PO 04/01/21 21:00 04/05/21 19:54 Fish Oil (Fish Oil) 2,000 mg DAILY PO 04/02/21 09:00 04/02/21 19:15 DC Polyethylene Glycol (miraLAX) 17 gm PRN DAILY PRN PO 1st choice CONSTIPATION 04/01/21 16:00 Ropinirole HCl (Requip) 0.5 mg HS PO 04/01/21 21:00 04/05/21 19:54 Divalproex Sodium (Depakote) 375 mg TID PO 04/01/21 21:00 04/01/21 20:03 DC Melatonin (Melatonin) 9 mg QHS PO 04/01/21 21:00 04/05/21 19:59 Psyllium Hydrophilic Mucilloid (Metamucil) 1 pkt DAILY PO 04/02/21 09:00 04/05/21 07:51 Divalproex Sodium (Depakote Sprinkles) 375 mg TID PO 04/01/21 21:00 04/03/21 19:35 DC 04/03/21 14:00 Olanzapine (ZyPREXA ZYDIS) 2.5 mg PRN Q2HR PRN PO PSYCHOSIS 04/02/21 23:00 Sertraline HCl (Zoloft) 25 mg DAILY PO 04/03/21 09:00 04/05/21 09:01 DC 04/05/21 07:52 Sertraline HCl (Zoloft) 50 mg DAILY PO 04/06/21 09:00 I have reviewed the current psychotropics carefully including drug interactions. Risk benefit ratio favors no change other than as noted in my dictated progress note. Diagnosis: Problems: (1) Impulse control disorder (2) Anxiety disorder, unspecified (3) Major neurocognitive disorder (4) Dementia, vascular, with depression (5) Dementia, vascular, with delusions (6) Dementia in Alzheimer's disease with depression (7) Dementia in Alzheimer's disease with delusions (8) Dementia of the Alzheimer's type with early onset with behavioral disturbance (9) UTI (urinary tract infection) GISELL GAXIOLA MD Apr 06, 2021 07:15
--- NOTE | 2021-04-06 07:55 | PDOC ---
Exam Note: Perfecto Note: This note is a late entry for 04/05/2021 covers elements not covered in my initial note. Subjective: The patient was seen individually in the evening of 04/05/2021 with Betzaida HERR, discussed and reviewed the chart. The patient slept 5 hours previous night. He was seen in his room. The patient remains confused, little more awake today, combative with cares, restless, compliant with medications. Urine culture & sensitivity is awaited. Review of Systems: No CV, , pulmonary, eye, ENT system symptoms on review. Reliability poor. Mental Status Exam: The patient is oriented to himself. Insight and judgment, recent and remote memory, attention and concentration, fund of knowledge is poor consistent with his diagnoses. Impression: Major neurocognitive disorder, Alzheimer, vascular with delusion, depression behavioral disturbance. Anxiety disorder unspecified. Impulse control disorder unspecified. Plan: Continue current psychotropics. Assessment: Vital Signs/I&O: Vital Signs Date Time Temp Pulse Resp B/P (MAP) Pulse Ox O2 Delivery O2 Flow Rate FiO2 04/06/21 06:04 97.4 68 16 107/76 (86) 91 04/03/21 20:25 Room Air I & O 04/05/21 04/05/21 04/06/21 15:00 23:00 07:00 Intake Total 600 ml 0 ml Balance 600 ml 0 ml Current Medications: Meds: Current Medications Medications (Trade) Dose Ordered Sig/Loretta Route PRN Reason Start Time Stop Time Status Last Admin Dose Admin Acetaminophen (Tylenol) 650 mg PRN Q6HRS PRN PO MILD PAIN / TEMP > 100.3'F 04/01/21 15:45 Multi-Ingredient Ointment (Analgesic [place]) 1 gaurav PRN QID PRN TP MUSCLE PAIN 04/01/21 15:45 Al Hydroxide/Mg Hydroxide (Mylanta Plus Xs) 15 ml PRN AFTMEALHC PRN PO DYSPEPSIA 04/01/21 15:45 Magnesium Hydroxide (Milk Of Magnesia) 2,400 mg PRN QHS PRN PO 2nd choice CONSTIPATION 04/01/21 15:45 Aspirin (Aspirin Chewable) 81 mg DAILY PO 04/02/21 09:00 04/05/21 07:52 Atorvastatin Calcium (Lipitor) 10 mg DAILY PO 04/02/21 09:00 04/05/21 07:52 Bisacodyl (Dulcolax Supp) 10 mg PRN DAILY PRN RC CONSTIPATION 04/01/21 16:00 Clopidogrel Bisulfate (Plavix) 75 mg DAILY PO 04/02/21 09:00 04/05/21 07:52 Donepezil HCl (Aricept) 10 mg DAILY PO 04/02/21 09:00 04/05/21 07:52 Metoprolol Tartrate (Lopressor) 12.5 mg BID PO 04/01/21 21:00 04/05/21 20:01 Niacin (Slo-Niacin) 500 mg QHS PO 04/01/21 21:00 04/05/21 19:54 Fish Oil (Fish Oil) 2,000 mg DAILY PO 04/02/21 09:00 04/02/21 19:15 DC Polyethylene Glycol (miraLAX) 17 gm PRN DAILY PRN PO 1st choice CONSTIPATION 04/01/21 16:00 Ropinirole HCl (Requip) 0.5 mg HS PO 04/01/21 21:00 04/05/21 19:54 Divalproex Sodium (Depakote) 375 mg TID PO 04/01/21 21:00 04/01/21 20:03 DC Melatonin (Melatonin) 9 mg QHS PO 04/01/21 21:00 04/05/21 19:59 Psyllium Hydrophilic Mucilloid (Metamucil) 1 pkt DAILY PO 04/02/21 09:00 04/05/21 07:51 Divalproex Sodium (Depakote Sprinkles) 375 mg TID PO 04/01/21 21:00 04/03/21 19:35 DC 04/03/21 14:00 Olanzapine (ZyPREXA ZYDIS) 2.5 mg PRN Q2HR PRN PO PSYCHOSIS 04/02/21 23:00 Sertraline HCl (Zoloft) 25 mg DAILY PO 04/03/21 09:00 04/05/21 09:01 DC 04/05/21 07:52 Sertraline HCl (Zoloft) 50 mg DAILY PO 04/06/21 09:00 I have reviewed the current psychotropics carefully including drug interactions. Risk benefit ratio favors no change other than as noted in my dictated progress note. Diagnosis: Problems: (1) Impulse control disorder (2) Anxiety disorder, unspecified (3) Major neurocognitive disorder (4) Dementia, vascular, with depression (5) Dementia, vascular, with delusions (6) Dementia in Alzheimer's disease with depression (7) Dementia in Alzheimer's disease with delusions (8) Dementia of the Alzheimer's type with early onset with behavioral disturbance GISELL GAXIOLA MD Apr 06, 2021 07:55
[2021-04-06] MEDS: ATORVASTATIN CALCIUM 10 MG TABLET. PO SCH (08:57)
[2021-04-06] MEDS: ASPIRIN CHEWABLE 81 MG TABLET. PO SCH (08:57)
[2021-04-06] MEDS: METOPROLOL TART IMMED RELEASE 25 MG TABLET. PO SCH ×2 (08:58→20:46)
[2021-04-06] MEDS: PSYLLIUM SEED (WITH SUGAR) PACKET. PO SCH (09:01)
[2021-04-06] MEDS: SERTRALINE 50 MG TABLET. PO SCH (09:01)
[2021-04-06] MEDS: CLOPIDOGREL BISULFATE 75 MG TABLET PO SCH (09:01)
[2021-04-06] MEDS: DONEPEZIL HCL 10 MG TABLET PO SCH (09:01)
--- NOTE | 2021-04-06 13:42 | NUR ---
Nursing note: Pt was sitting in the hallway outside of his room at time of AM med pass and assessment. He is drowsy and does not open his eyes for me, but opens his mouth to take the bite of pudding mixed with his crushed meds. He appears to be comfortable at this time, but does not answer any questions. He is currently resting quietly in his room. Will continue to monitor.
[2021-04-06 15:41] VITALS: BP 146/76
--- NOTE | 2021-04-06 20:18 | PDOC ---
Exam Note: Perfecto Note: Please also refer to the separate dictated note~for this date of service dictated separately.~Patient seen individually. Discussed the patient with Nursing staff reviewed the chart.~Reviewed interim history and current functioning. Reviewed vital signs,~Labs/ Radiology~and current medications noted below. Continue current treatment with the changes noted in the dictated addendum note Assessment: Vital Signs/I&O: Vital Signs Date Time Temp Pulse Resp B/P (MAP) Pulse Ox O2 Delivery O2 Flow Rate FiO2 04/06/21 15:41 98.2 81 18 146/76 (99) 94 04/03/21 20:25 Room Air I & O 04/05/21 04/05/21 04/06/21 15:00 23:00 07:00 Intake Total 600 ml 0 ml Balance 600 ml 0 ml Current Medications: Meds: Current Medications Medications (Trade) Dose Ordered Sig/Loretta Route PRN Reason Start Time Stop Time Status Last Admin Dose Admin Acetaminophen (Tylenol) 650 mg PRN Q6HRS PRN PO MILD PAIN / TEMP > 100.3'F 04/01/21 15:45 Multi-Ingredient Ointment (Analgesic [place]) 1 gaurav PRN QID PRN TP MUSCLE PAIN 04/01/21 15:45 Al Hydroxide/Mg Hydroxide (Mylanta Plus Xs) 15 ml PRN AFTMEALHC PRN PO DYSPEPSIA 04/01/21 15:45 Magnesium Hydroxide (Milk Of Magnesia) 2,400 mg PRN QHS PRN PO 2nd choice CONSTIPATION 04/01/21 15:45 Aspirin (Aspirin Chewable) 81 mg DAILY PO 04/02/21 09:00 04/06/21 08:57 Atorvastatin Calcium (Lipitor) 10 mg DAILY PO 04/02/21 09:00 04/06/21 08:57 Bisacodyl (Dulcolax Supp) 10 mg PRN DAILY PRN RC CONSTIPATION 04/01/21 16:00 Clopidogrel Bisulfate (Plavix) 75 mg DAILY PO 04/02/21 09:00 04/06/21 09:01 Donepezil HCl (Aricept) 10 mg DAILY PO 04/02/21 09:00 04/06/21 09:01 Metoprolol Tartrate (Lopressor) 12.5 mg BID PO 04/01/21 21:00 04/06/21 08:58 Niacin (Slo-Niacin) 500 mg QHS PO 04/01/21 21:00 04/05/21 19:54 Fish Oil (Fish Oil) 2,000 mg DAILY PO 04/02/21 09:00 04/02/21 19:15 DC Polyethylene Glycol (miraLAX) 17 gm PRN DAILY PRN PO 1st choice CONSTIPATION 04/01/21 16:00 Ropinirole HCl (Requip) 0.5 mg HS PO 04/01/21 21:00 04/05/21 19:54 Divalproex Sodium (Depakote) 375 mg TID PO 04/01/21 21:00 04/01/21 20:03 DC Melatonin (Melatonin) 9 mg QHS PO 04/01/21 21:00 04/05/21 19:59 Psyllium Hydrophilic Mucilloid (Metamucil) 1 pkt DAILY PO 04/02/21 09:00 04/06/21 09:01 Divalproex Sodium (Depakote Sprinkles) 375 mg TID PO 04/01/21 21:00 04/03/21 19:35 DC 04/03/21 14:00 Olanzapine (ZyPREXA ZYDIS) 2.5 mg PRN Q2HR PRN PO PSYCHOSIS 04/02/21 23:00 Sertraline HCl (Zoloft) 25 mg DAILY PO 04/03/21 09:00 04/05/21 09:01 DC 04/05/21 07:52 Sertraline HCl (Zoloft) 50 mg DAILY PO 04/06/21 09:00 04/06/21 09:01 Amoxicillin (Amoxil) 500 mg BID PO 04/06/21 21:00 04/13/21 13:00 Current Medications Medications (Trade) Dose Ordered Sig/Loretta Route PRN Reason Start Time Stop Time Status Last Admin Dose Admin Sertraline HCl (Zoloft) 50 mg DAILY PO 04/06/21 09:00 04/06/21 09:01 I have reviewed the current psychotropics carefully including drug interactions. Risk benefit ratio favors no change other than as noted in my dictated progress note. Diagnosis: Problems: (1) Impulse control disorder (2) Anxiety disorder, unspecified (3) Major neurocognitive disorder (4) Dementia, vascular, with depression (5) Dementia, vascular, with delusions (6) Dementia in Alzheimer's disease with depression (7) Dementia in Alzheimer's disease with delusions (8) Dementia of the Alzheimer's type with early onset with behavioral disturbance GISELL GAXIOLA MD Apr 06, 2021 20:18
[2021-04-06] MEDS: MELATONIN 3 MG TABLET PO SCH (20:46)
[2021-04-06] MEDS: rOPINIRole 0.5 MG TABLET. PO SCH (20:46)
[2021-04-06] MEDS: NIACIN ER 500 MG TABLET.ER PO SCH (20:46)
[2021-04-06] MEDS: AMOXICILLIN 250 MG CAPSULE PO SCH (20:48)
--- NOTE | 2021-04-06 23:33 | NUR ---
Nursing Note Pt in bed during assessment, will not open eyes or open mouth initially to take meds. Later, opens mouth and swallows pudding with meds in it. Will not talk to staff, acts like he is asleep but isn't is rigid and stiff when attempting to touch patient. When asked questions, he shakes his head no.
[2021-04-07 06:28] VITALS: BP 132/74
[2021-04-07] MEDS: ASPIRIN CHEWABLE 81 MG TABLET. PO SCH (08:46)
[2021-04-07] MEDS: PSYLLIUM SEED (WITH SUGAR) PACKET. PO SCH (08:46)
[2021-04-07] MEDS: AMOXICILLIN 250 MG CAPSULE PO SCH ×2 (08:47→20:35)
[2021-04-07] MEDS: SERTRALINE 50 MG TABLET. PO SCH (08:47)
[2021-04-07] MEDS: METOPROLOL TART IMMED RELEASE 25 MG TABLET. PO SCH ×2 (08:47→20:36)
[2021-04-07] MEDS: ATORVASTATIN CALCIUM 10 MG TABLET. PO SCH (08:47)
[2021-04-07] MEDS: DONEPEZIL HCL 10 MG TABLET PO SCH (08:47)
[2021-04-07] MEDS: CLOPIDOGREL BISULFATE 75 MG TABLET PO SCH (08:47)
--- NOTE | 2021-04-07 11:08 | NUR ---
Nursing note: Pt eating breakfast at time of AM med pass and assessment. He is compliant with meds crushed in pudding and cooperative with assessment, but does not answer any questions. He does not appear to be in any pain at time of assessment. He is currently sitting quietly in the hallway. Will continue to monitor.
[2021-04-07 15:54] VITALS: BP 129/73
[2021-04-07] MEDS: rOPINIRole 0.5 MG TABLET. PO SCH (20:35)
[2021-04-07] MEDS: MELATONIN 3 MG TABLET PO SCH (20:35)
[2021-04-07] MEDS: NIACIN ER 500 MG TABLET.ER PO SCH (20:35)
--- NOTE | 2021-04-07 20:36 | PDOC ---
Exam Note: Perfecto Note: Please also refer to the separate dictated note~for this date of service dictated separately.~Patient seen individually. Discussed the patient with Nursing staff reviewed the chart.~Reviewed interim history and current functioning. Reviewed vital signs,~Labs/ Radiology~and current medications noted below. Continue current treatment with the changes noted in the dictated addendum note Assessment: Vital Signs/I&O: Vital Signs Date Time Temp Pulse Resp B/P (MAP) Pulse Ox O2 Delivery O2 Flow Rate FiO2 04/07/21 15:54 97.5 66 16 129/73 (91) 97 Room Air I & O 04/06/21 04/06/21 04/07/21 15:00 23:00 07:00 Intake Total 660 ml 240 ml Balance 660 ml 240 ml Labs: Laboratory Tests Test 04/07/21 07:00 SARS-CoV-2 (PCR) Not detected (NOT DETECTD) Current Medications: Meds: Laboratory Tests Test 04/07/21 07:00 Coronavirus (COVID-19)(PCR) Not detected Current Medications Medications (Trade) Dose Ordered Sig/Loretta Route PRN Reason Start Time Stop Time Status Last Admin Dose Admin Acetaminophen (Tylenol) 650 mg PRN Q6HRS PRN PO MILD PAIN / TEMP > 100.3'F 04/01/21 15:45 Multi-Ingredient Ointment (Analgesic [place]) 1 gaurav PRN QID PRN TP MUSCLE PAIN 04/01/21 15:45 Al Hydroxide/Mg Hydroxide (Mylanta Plus Xs) 15 ml PRN AFTMEALHC PRN PO DYSPEPSIA 04/01/21 15:45 Magnesium Hydroxide (Milk Of Magnesia) 2,400 mg PRN QHS PRN PO 2nd choice CONSTIPATION 04/01/21 15:45 Aspirin (Aspirin Chewable) 81 mg DAILY PO 04/02/21 09:00 04/07/21 08:46 Atorvastatin Calcium (Lipitor) 10 mg DAILY PO 04/02/21 09:00 04/07/21 08:47 Bisacodyl (Dulcolax Supp) 10 mg PRN DAILY PRN RC CONSTIPATION 04/01/21 16:00 Clopidogrel Bisulfate (Plavix) 75 mg DAILY PO 04/02/21 09:00 04/07/21 08:47 Donepezil HCl (Aricept) 10 mg DAILY PO 04/02/21 09:00 04/07/21 08:47 Metoprolol Tartrate (Lopressor) 12.5 mg BID PO 04/01/21 21:00 04/07/21 08:47 Niacin (Slo-Niacin) 500 mg QHS PO 04/01/21 21:00 04/06/21 20:46 Fish Oil (Fish Oil) 2,000 mg DAILY PO 04/02/21 09:00 04/02/21 19:15 DC Polyethylene Glycol (miraLAX) 17 gm PRN DAILY PRN PO 1st choice CONSTIPATION 04/01/21 16:00 Ropinirole HCl (Requip) 0.5 mg HS PO 04/01/21 21:00 04/06/21 20:46 Divalproex Sodium (Depakote) 375 mg TID PO 04/01/21 21:00 04/01/21 20:03 DC Melatonin (Melatonin) 9 mg QHS PO 04/01/21 21:00 04/06/21 20:46 Psyllium Hydrophilic Mucilloid (Metamucil) 1 pkt DAILY PO 04/02/21 09:00 04/07/21 08:46 Divalproex Sodium (Depakote Sprinkles) 375 mg TID PO 04/01/21 21:00 04/03/21 19:35 DC 04/03/21 14:00 Olanzapine (ZyPREXA ZYDIS) 2.5 mg PRN Q2HR PRN PO PSYCHOSIS 04/02/21 23:00 Sertraline HCl (Zoloft) 25 mg DAILY PO 04/03/21 09:00 04/05/21 09:01 DC 04/05/21 07:52 Sertraline HCl (Zoloft) 50 mg DAILY PO 04/06/21 09:00 04/07/21 08:47 Amoxicillin (Amoxil) 500 mg BID PO 04/06/21 21:00 04/13/21 13:00 04/07/21 08:47 Current Medications Medications (Trade) Dose Ordered Sig/Loretta Route PRN Reason Start Time Stop Time Status Last Admin Dose Admin Amoxicillin (Amoxil) 500 mg BID PO 04/06/21 21:00 04/13/21 13:00 04/07/21 08:47 I have reviewed the current psychotropics carefully including drug interactions. Risk benefit ratio favors no change other than as noted in my dictated progress note. Diagnosis: Problems: (1) Impulse control disorder (2) Anxiety disorder, unspecified (3) Major neurocognitive disorder (4) Dementia, vascular, with depression (5) Dementia, vascular, with delusions (6) Dementia in Alzheimer's disease with depression (7) Dementia in Alzheimer's disease with delusions (8) Dementia of the Alzheimer's type with early onset with behavioral disturbance GISELL GAXIOLA MD Apr 07, 2021 20:36
--- NOTE | 2021-04-08 03:43 | NUR ---
Pt has been in bed sleeping tonight. He was awaken for meds crushed in applesauce. He did not answer any questions or speak to staff. He has had no behaviors tonight.
[2021-04-08 06:20] VITALS: BP 164/86
[2021-04-08] MEDS: ASPIRIN CHEWABLE 81 MG TABLET. PO SCH (08:33)
[2021-04-08] MEDS: ATORVASTATIN CALCIUM 10 MG TABLET. PO SCH (08:33)
[2021-04-08] MEDS: SERTRALINE 50 MG TABLET. PO SCH (08:33)
[2021-04-08] MEDS: PSYLLIUM SEED (WITH SUGAR) PACKET. PO SCH (08:33)
[2021-04-08] MEDS: CLOPIDOGREL BISULFATE 75 MG TABLET PO SCH (08:33)
[2021-04-08] MEDS: AMOXICILLIN 250 MG CAPSULE PO SCH ×2 (08:34→20:38)
[2021-04-08] MEDS: METOPROLOL TART IMMED RELEASE 25 MG TABLET. PO SCH ×2 (08:34→20:38)
[2021-04-08] MEDS: DONEPEZIL HCL 10 MG TABLET PO SCH (08:34)
--- NOTE | 2021-04-08 09:56 | PDOC ---
Exam Note: Perfecto Note: This note is a late entry for 04/06/2021 covers elements not covered in my initial note. Subjective: The patient was seen individually in the evening of 04/06/2021 with Deyanira HERR, discussed and reviewed the chart. The patient slept 9-1/2 hours previous night. He has been started on Amoxil for his UTI. He remains somewhat anxious and labile in his mood. Review of Systems: No CV, , pulmonary, eye, ENT system symptoms on review. Reliability poor. Mental Status Exam: The patient is oriented to himself. Insight and judgment, recent and remote memory, attention and concentration, fund of knowledge is poor consistent with his diagnoses. Impression: Major neurocognitive disorder, Alzheimer, vascular with delusion, depression behavioral disturbance. Anxiety disorder unspecified. Impulse control disorder unspecified. Plan: Continue current psychotropics. Assessment: Vital Signs/I&O: Vital Signs Date Time Temp Pulse Resp B/P (MAP) Pulse Ox O2 Delivery O2 Flow Rate FiO2 04/08/21 08:34 73 164/86 04/08/21 06:20 96.8 14 97 Room Air I & O 04/07/21 04/07/21 04/08/21 14:59 22:59 06:59 Intake Total 720 ml 600 ml Balance 720 ml 600 ml Current Medications: Meds: Current Medications Medications (Trade) Dose Ordered Sig/Loretta Route PRN Reason Start Time Stop Time Status Last Admin Dose Admin Acetaminophen (Tylenol) 650 mg PRN Q6HRS PRN PO MILD PAIN / TEMP > 100.3'F 04/01/21 15:45 Multi-Ingredient Ointment (Analgesic [place]) 1 gaurav PRN QID PRN TP MUSCLE PAIN 04/01/21 15:45 Al Hydroxide/Mg Hydroxide (Mylanta Plus Xs) 15 ml PRN AFTMEALHC PRN PO DYSPEPSIA 04/01/21 15:45 Magnesium Hydroxide (Milk Of Magnesia) 2,400 mg PRN QHS PRN PO 2nd choice CONSTIPATION 04/01/21 15:45 Aspirin (Aspirin Chewable) 81 mg DAILY PO 04/02/21 09:00 04/08/21 08:33 Atorvastatin Calcium (Lipitor) 10 mg DAILY PO 04/02/21 09:00 04/08/21 08:33 Bisacodyl (Dulcolax Supp) 10 mg PRN DAILY PRN RC CONSTIPATION 04/01/21 16:00 Clopidogrel Bisulfate (Plavix) 75 mg DAILY PO 04/02/21 09:00 04/08/21 08:33 Donepezil HCl (Aricept) 10 mg DAILY PO 04/02/21 09:00 04/08/21 08:34 Metoprolol Tartrate (Lopressor) 12.5 mg BID PO 04/01/21 21:00 04/08/21 08:34 Niacin (Slo-Niacin) 500 mg QHS PO 04/01/21 21:00 04/07/21 20:35 Fish Oil (Fish Oil) 2,000 mg DAILY PO 04/02/21 09:00 04/02/21 19:15 DC Polyethylene Glycol (miraLAX) 17 gm PRN DAILY PRN PO 1st choice CONSTIPATION 04/01/21 16:00 Ropinirole HCl (Requip) 0.5 mg HS PO 04/01/21 21:00 04/07/21 20:35 Divalproex Sodium (Depakote) 375 mg TID PO 04/01/21 21:00 04/01/21 20:03 DC Melatonin (Melatonin) 9 mg QHS PO 04/01/21 21:00 04/07/21 20:35 Psyllium Hydrophilic Mucilloid (Metamucil) 1 pkt DAILY PO 04/02/21 09:00 04/08/21 08:33 Divalproex Sodium (Depakote Sprinkles) 375 mg TID PO 04/01/21 21:00 04/03/21 19:35 DC 04/03/21 14:00 Olanzapine (ZyPREXA ZYDIS) 2.5 mg PRN Q2HR PRN PO PSYCHOSIS 04/02/21 23:00 Sertraline HCl (Zoloft) 25 mg DAILY PO 04/03/21 09:00 04/05/21 09:01 DC 04/05/21 07:52 Sertraline HCl (Zoloft) 50 mg DAILY PO 04/06/21 09:00 04/08/21 08:33 Amoxicillin (Amoxil) 500 mg BID PO 04/06/21 21:00 04/13/21 13:00 04/08/21 08:34 I have reviewed the current psychotropics carefully including drug interactions. Risk benefit ratio favors no change other than as noted in my dictated progress note. Diagnosis: Problems: (1) Impulse control disorder (2) Anxiety disorder, unspecified (3) Major neurocognitive disorder (4) Dementia, vascular, with depression (5) Dementia, vascular, with delusions (6) Dementia in Alzheimer's disease with depression (7) Dementia in Alzheimer's disease with delusions (8) Dementia of the Alzheimer's type with early onset with behavioral disturbance GISELL GAXIOLA MD Apr 08, 2021 09:56
--- NOTE | 2021-04-08 10:13 | PDOC ---
Exam Note: Perfecto Note: This note is a late entry for 04/07/2021 covers elements not covered in my initial note. Subjective: The patient was seen individually in the evening of 04/07/2021 with Alex HERR, discussed and reviewed the chart. The patient slept 8-1/2 hours previous night. He remains confused, non-verbal, punching staff members. He has bee started on Amoxil for UTI. Review of Systems: No CV, , pulmonary, eye, ENT system symptoms on review. Reliability poor. Mental Status Exam: The patient is oriented to himself. Insight and judgment, recent and remote memory, attention and concentration, fund of knowledge is poor consistent with his diagnoses. Impression: Major neurocognitive disorder, Alzheimer, vascular with delusion, depression behavioral disturbance. Anxiety disorder unspecified. Impulse control disorder unspecified. Plan: Continue current psychotropics. Assessment: Vital Signs/I&O: Vital Signs Date Time Temp Pulse Resp B/P (MAP) Pulse Ox O2 Delivery O2 Flow Rate FiO2 04/08/21 08:34 73 164/86 04/08/21 06:20 96.8 14 97 Room Air I & O 04/07/21 04/07/21 04/08/21 15:00 23:00 07:00 Intake Total 720 ml 600 ml Balance 720 ml 600 ml Current Medications: Meds: Current Medications Medications (Trade) Dose Ordered Sig/Loretta Route PRN Reason Start Time Stop Time Status Last Admin Dose Admin Acetaminophen (Tylenol) 650 mg PRN Q6HRS PRN PO MILD PAIN / TEMP > 100.3'F 04/01/21 15:45 Multi-Ingredient Ointment (Analgesic [place]) 1 gaurav PRN QID PRN TP MUSCLE PAIN 04/01/21 15:45 Al Hydroxide/Mg Hydroxide (Mylanta Plus Xs) 15 ml PRN AFTMEALHC PRN PO DYSPEPSIA 04/01/21 15:45 Magnesium Hydroxide (Milk Of Magnesia) 2,400 mg PRN QHS PRN PO 2nd choice CONSTIPATION 04/01/21 15:45 Aspirin (Aspirin Chewable) 81 mg DAILY PO 04/02/21 09:00 04/08/21 08:33 Atorvastatin Calcium (Lipitor) 10 mg DAILY PO 04/02/21 09:00 04/08/21 08:33 Bisacodyl (Dulcolax Supp) 10 mg PRN DAILY PRN RC CONSTIPATION 04/01/21 16:00 Clopidogrel Bisulfate (Plavix) 75 mg DAILY PO 04/02/21 09:00 04/08/21 08:33 Donepezil HCl (Aricept) 10 mg DAILY PO 04/02/21 09:00 04/08/21 08:34 Metoprolol Tartrate (Lopressor) 12.5 mg BID PO 04/01/21 21:00 04/08/21 08:34 Niacin (Slo-Niacin) 500 mg QHS PO 04/01/21 21:00 04/07/21 20:35 Fish Oil (Fish Oil) 2,000 mg DAILY PO 04/02/21 09:00 04/02/21 19:15 DC Polyethylene Glycol (miraLAX) 17 gm PRN DAILY PRN PO 1st choice CONSTIPATION 04/01/21 16:00 Ropinirole HCl (Requip) 0.5 mg HS PO 04/01/21 21:00 04/07/21 20:35 Divalproex Sodium (Depakote) 375 mg TID PO 04/01/21 21:00 04/01/21 20:03 DC Melatonin (Melatonin) 9 mg QHS PO 04/01/21 21:00 04/07/21 20:35 Psyllium Hydrophilic Mucilloid (Metamucil) 1 pkt DAILY PO 04/02/21 09:00 04/08/21 08:33 Divalproex Sodium (Depakote Sprinkles) 375 mg TID PO 04/01/21 21:00 04/03/21 19:35 DC 04/03/21 14:00 Olanzapine (ZyPREXA ZYDIS) 2.5 mg PRN Q2HR PRN PO PSYCHOSIS 04/02/21 23:00 Sertraline HCl (Zoloft) 25 mg DAILY PO 04/03/21 09:00 04/05/21 09:01 DC 04/05/21 07:52 Sertraline HCl (Zoloft) 50 mg DAILY PO 04/06/21 09:00 04/08/21 08:33 Amoxicillin (Amoxil) 500 mg BID PO 04/06/21 21:00 04/13/21 13:00 04/08/21 08:34 I have reviewed the current psychotropics carefully including drug interactions. Risk benefit ratio favors no change other than as noted in my dictated progress note. Diagnosis: Problems: (1) Impulse control disorder (2) Anxiety disorder, unspecified (3) Major neurocognitive disorder (4) Dementia, vascular, with depression (5) Dementia, vascular, with delusions (6) Dementia in Alzheimer's disease with depression (7) Dementia in Alzheimer's disease with delusions (8) Dementia of the Alzheimer's type with early onset with behavioral disturbance GISELL GAXIOLA MD Apr 08, 2021 10:13
--- NOTE | 2021-04-08 15:40 | NUR ---
Nursing note: Pt has been mostly pleasant this shift, compliant with meds crushed in pudding and cooperative with assessment. Pt was irritable this AM when getting up for breakfast, attempting to bite staff. He has been pleasant ever since this incident occurred. He is currently sitting quietly in the hallway. Will continue to monitor.
[2021-04-08 15:50] VITALS: BP 110/72
--- NOTE | 2021-04-08 20:28 | PDOC ---
Exam Note: Perfecto Note: Please also refer to the separate dictated note~for this date of service dictated separately.~Patient seen individually. Discussed the patient with Nursing staff reviewed the chart.~Reviewed interim history and current functioning. Reviewed vital signs,~Labs/ Radiology~and current medications noted below. Continue current treatment with the changes noted in the dictated addendum note Assessment: Vital Signs/I&O: Vital Signs Date Time Temp Pulse Resp B/P (MAP) Pulse Ox O2 Delivery O2 Flow Rate FiO2 04/08/21 15:50 97.8 78 18 110/72 (85) 95 04/08/21 06:20 Room Air I & O 04/07/21 04/07/21 04/08/21 15:00 23:00 07:00 Intake Total 720 ml 600 ml Balance 720 ml 600 ml Current Medications: Meds: Current Medications Medications (Trade) Dose Ordered Sig/Loretta Route PRN Reason Start Time Stop Time Status Last Admin Dose Admin Acetaminophen (Tylenol) 650 mg PRN Q6HRS PRN PO MILD PAIN / TEMP > 100.3'F 04/01/21 15:45 Multi-Ingredient Ointment (Analgesic [place]) 1 gaurav PRN QID PRN TP MUSCLE PAIN 04/01/21 15:45 Al Hydroxide/Mg Hydroxide (Mylanta Plus Xs) 15 ml PRN AFTMEALHC PRN PO DYSPEPSIA 04/01/21 15:45 Magnesium Hydroxide (Milk Of Magnesia) 2,400 mg PRN QHS PRN PO 2nd choice CONSTIPATION 04/01/21 15:45 Aspirin (Aspirin Chewable) 81 mg DAILY PO 04/02/21 09:00 04/08/21 08:33 Atorvastatin Calcium (Lipitor) 10 mg DAILY PO 04/02/21 09:00 04/08/21 08:33 Bisacodyl (Dulcolax Supp) 10 mg PRN DAILY PRN RC CONSTIPATION 04/01/21 16:00 Clopidogrel Bisulfate (Plavix) 75 mg DAILY PO 04/02/21 09:00 04/08/21 08:33 Donepezil HCl (Aricept) 10 mg DAILY PO 04/02/21 09:00 04/08/21 20:02 DC 04/08/21 08:34 Metoprolol Tartrate (Lopressor) 12.5 mg BID PO 04/01/21 21:00 04/08/21 08:34 Niacin (Slo-Niacin) 500 mg QHS PO 04/01/21 21:00 04/07/21 20:35 Fish Oil (Fish Oil) 2,000 mg DAILY PO 04/02/21 09:00 04/02/21 19:15 DC Polyethylene Glycol (miraLAX) 17 gm PRN DAILY PRN PO 1st choice CONSTIPATION 04/01/21 16:00 Ropinirole HCl (Requip) 0.5 mg HS PO 04/01/21 21:00 04/07/21 20:35 Divalproex Sodium (Depakote) 375 mg TID PO 04/01/21 21:00 04/01/21 20:03 DC Melatonin (Melatonin) 9 mg QHS PO 04/01/21 21:00 04/07/21 20:35 Psyllium Hydrophilic Mucilloid (Metamucil) 1 pkt DAILY PO 04/02/21 09:00 04/08/21 08:33 Divalproex Sodium (Depakote Sprinkles) 375 mg TID PO 04/01/21 21:00 04/03/21 19:35 DC 04/03/21 14:00 Olanzapine (ZyPREXA ZYDIS) 2.5 mg PRN Q2HR PRN PO PSYCHOSIS 04/02/21 23:00 Sertraline HCl (Zoloft) 25 mg DAILY PO 04/03/21 09:00 04/05/21 09:01 DC 04/05/21 07:52 Sertraline HCl (Zoloft) 50 mg DAILY PO 04/06/21 09:00 04/08/21 20:02 DC 04/08/21 08:33 Amoxicillin (Amoxil) 500 mg BID PO 04/06/21 21:00 04/13/21 13:00 04/08/21 08:34 Sertraline HCl (Zoloft) 75 mg DAILY PO 04/09/21 09:00 UNV Divalproex Sodium (Depakote Sprinkles) 125 mg BID PO 04/09/21 09:00 UNV I have reviewed the current psychotropics carefully including drug interactions. Risk benefit ratio favors no change other than as noted in my dictated progress note. Diagnosis: Problems: (1) Impulse control disorder (2) Anxiety disorder, unspecified (3) Major neurocognitive disorder (4) Dementia, vascular, with depression (5) Dementia, vascular, with delusions (6) Dementia in Alzheimer's disease with depression (7) Dementia in Alzheimer's disease with delusions (8) Dementia of the Alzheimer's type with early onset with behavioral disturbance GISELL GAXIOLA MD Apr 08, 2021 20:28
[2021-04-08] MEDS: MELATONIN 3 MG TABLET PO SCH (20:37)
[2021-04-08] MEDS: rOPINIRole 0.5 MG TABLET. PO SCH (20:37)
[2021-04-08] MEDS: NIACIN ER 500 MG TABLET.ER PO SCH (20:37)
[2021-04-09 05:40] VITALS: BP 176/75
[2021-04-09] MEDS: ASPIRIN CHEWABLE 81 MG TABLET. PO SCH (07:56)
[2021-04-09] MEDS: PSYLLIUM SEED (WITH SUGAR) PACKET. PO SCH (07:56)
[2021-04-09] MEDS: AMOXICILLIN 250 MG CAPSULE PO SCH ×2 (07:56→21:27)
[2021-04-09] MEDS: METOPROLOL TART IMMED RELEASE 25 MG TABLET. PO SCH ×2 (07:56→21:27)
[2021-04-09] MEDS: CLOPIDOGREL BISULFATE 75 MG TABLET PO SCH (07:57)
[2021-04-09] MEDS: DIVALPROEX 125 MG CAP.SPRINK PO SCH ×2 (07:59→21:26)
[2021-04-09] MEDS: ATORVASTATIN CALCIUM 10 MG TABLET. PO SCH (07:59)
[2021-04-09] MEDS ORDERED: SERTRALINE 50 MG TABLET. PO SCH (09:00)
[2021-04-09 15:29] VITALS: BP 149/80
--- NOTE | 2021-04-09 17:00 | NUR ---
Pt came down to DR for meal. Attempting to sit in chair. When pt close to sitting, pt suddenly fell side ways to floor landing hard on right side. Pt unable to straighten leg, grabbing at area near thigh and r knee. Pt assisted to bed.
--- NOTE | 2021-04-09 17:10 | NUR ---
Dr Ortega notified. Orders received.
--- NOTE | 2021-04-09 19:21 | RAD ---
Study: XR SHOULDER_RIGHT 2+ VIEWS Indication: Fall. Comparison: None. Findings: No displaced fracture. Alignment is within normal limits. Minimal sclerosis at the greater tuberosity is frequently degenerative in etiology. No cortical discontinuity to suggest mild impaction injury. Arthrosis is mild/moderate. Osteopenia. Axillary surgical clips. Incomplete assessment of cervical/thoracic spine degenerative ch anges. Impression: No displaced fracture or malalignment at the right shoulder. Osteopenia. Mild/moderate degenerative c hanges. Electronically signed by: CHRISTINA SPRINGER MD (04/09/2021 7:19 PM) [facility]
--- NOTE | 2021-04-09 19:25 | RAD ---
Study: 1. XR FEMUR_RIGHT 2. XR KNEE_RT 1-2 VIEWS 3. XR HIP_RT 2-3VIEWS Indication: Fall. Comparison: None. Findings: Right hip: Acute intertrochanteric femur fracture with cephalad migration of the femoral shaft. The femoral head remains well-seated within the acetabular fossa. Limited assessment for fracture elsewhere throughou t the pelvis in the setting of patient positioning and diffuse osteopenia. Right femur: No acute fracture along the femoral shaft. Vascular calcifications. Right knee: Assessment is limited by patient positioning. No displaced fracture or gross malalignment. Impression: Right hip/femur/knee: Acute intertrochanteric right femur fracture with cephalad migration of the femoral shaft. No additio nal fracture is identified considering osteopenia and difficulties with patient positioning. Electronically signed by: CHRISTINA SPRINGER MD (04/09/2021 7:22 PM) [facility]
--- NOTE | 2021-04-09 19:59 | NUR ---
Left voicemail for dtr Adrianna to return call regarding pt condition. Dr Ortega called with xray results. Order to transfer to [facility]. Dye Reel Operator to obtain bed placement.
[2021-04-09] MEDS ORDERED: AMOX500C PO (20:07)
[2021-04-09] MEDS ORDERED: ACET325T21 PO (20:07)
[2021-04-09] MEDS ORDERED: MAG-124 PO (20:08)
[2021-04-09] MEDS ORDERED: METH57CR17 TP (20:09)
[2021-04-09] MEDS ORDERED: OLAN5TAB67 PO (20:10)
[2021-04-09] MEDS ORDERED: SERT50TA PO (20:10)
--- NOTE | 2021-04-09 21:06 | NUR ---
Call placed to Adrianna dow and MORE at [phone] to inform her of patients pending transfer to [facility] after fall resulting in a fracture requiring orthopedic consult. Message left to call [facility] for information.
[2021-04-09] MEDS: rOPINIRole 0.5 MG TABLET. PO SCH (21:26)
[2021-04-09 21:27] VITALS: BP 149/80
[2021-04-09] MEDS: NIACIN ER 500 MG TABLET.ER PO SCH (21:27)
[2021-04-09] MEDS: MELATONIN 3 MG TABLET PO SCH (21:27)
--- NOTE | 2021-04-09 21:50 | NUR ---
Pt left [facility] with ambulance personnel for transfer to [facility]. Pt alert and responsive VSS.
--- NOTE | 2021-04-09 21:52 | PDOC ---
Exam Note: Perfecto Note: Please also refer to the separate dictated note~for this date of service dictated separately.~Patient seen individually. Discussed the patient with Nursing staff reviewed the chart.~Reviewed interim history and current functioning. Reviewed vital signs,~Labs/ Radiology~and current medications noted below. Continue current treatment with the changes noted in the dictated addendum note Assessment: Vital Signs/I&O: Vital Signs Date Time Temp Pulse Resp B/P (MAP) Pulse Ox O2 Delivery O2 Flow Rate FiO2 04/09/21 21:27 76 149/80 04/09/21 15:29 98.0 20 95 04/09/21 05:40 Room Air I & O 04/08/21 04/08/21 04/09/21 15:00 23:00 07:00 Intake Total 240 ml 120 ml Balance 240 ml 120 ml Current Medications: Meds: Current Medications Medications (Trade) Dose Ordered Sig/Loretta Route PRN Reason Start Time Stop Time Status Last Admin Dose Admin Acetaminophen (Tylenol) 650 mg PRN Q6HRS PRN PO MILD PAIN / TEMP > 100.3'F 04/01/21 15:45 04/09/21 21:31 Multi-Ingredient Ointment (Analgesic [place]) 1 gaurav PRN QID PRN TP MUSCLE PAIN 04/01/21 15:45 Al Hydroxide/Mg Hydroxide (Mylanta Plus Xs) 15 ml PRN AFTMEALHC PRN PO DYSPEPSIA 04/01/21 15:45 Magnesium Hydroxide (Milk Of Magnesia) 2,400 mg PRN QHS PRN PO 2nd choice CONSTIPATION 04/01/21 15:45 Aspirin (Aspirin Chewable) 81 mg DAILY PO 04/02/21 09:00 04/09/21 07:56 Atorvastatin Calcium (Lipitor) 10 mg DAILY PO 04/02/21 09:00 04/09/21 07:59 Bisacodyl (Dulcolax Supp) 10 mg PRN DAILY PRN RC CONSTIPATION 04/01/21 16:00 Clopidogrel Bisulfate (Plavix) 75 mg DAILY PO 04/02/21 09:00 04/09/21 07:57 Donepezil HCl (Aricept) 10 mg DAILY PO 04/02/21 09:00 04/08/21 20:02 DC 04/08/21 08:34 Metoprolol Tartrate (Lopressor) 12.5 mg BID PO 04/01/21 21:00 04/09/21 21:27 Niacin (Slo-Niacin) 500 mg QHS PO 04/01/21 21:00 04/09/21 21:27 Fish Oil (Fish Oil) 2,000 mg DAILY PO 04/02/21 09:00 04/02/21 19:15 DC Polyethylene Glycol (miraLAX) 17 gm PRN DAILY PRN PO 1st choice CONSTIPATION 04/01/21 16:00 Ropinirole HCl (Requip) 0.5 mg HS PO 04/01/21 21:00 04/09/21 21:26 Divalproex Sodium (Depakote) 375 mg TID PO 04/01/21 21:00 04/01/21 20:03 DC Melatonin (Melatonin) 9 mg QHS PO 04/01/21 21:00 04/09/21 21:27 Psyllium Hydrophilic Mucilloid (Metamucil) 1 pkt DAILY PO 04/02/21 09:00 04/09/21 07:56 Divalproex Sodium (Depakote Sprinkles) 375 mg TID PO 04/01/21 21:00 04/03/21 19:35 DC 04/03/21 14:00 Olanzapine (ZyPREXA ZYDIS) 2.5 mg PRN Q2HR PRN PO PSYCHOSIS 04/02/21 23:00 Sertraline HCl (Zoloft) 25 mg DAILY PO 04/03/21 09:00 04/05/21 09:01 DC 04/05/21 07:52 Sertraline HCl (Zoloft) 50 mg DAILY PO 04/06/21 09:00 04/08/21 20:02 DC 04/08/21 08:33 Amoxicillin (Amoxil) 500 mg BID PO 04/06/21 21:00 04/13/21 13:00 04/09/21 21:27 Sertraline HCl (Zoloft) 75 mg DAILY PO 04/09/21 09:00 04/09/21 07:59 Divalproex Sodium (Depakote Sprinkles) 125 mg BID PO 04/09/21 09:00 04/09/21 21:26 Current Medications Medications (Trade) Dose Ordered Sig/Loertta Route PRN Reason Start Time Stop Time Status Last Admin Dose Admin Sertraline HCl (Zoloft) 75 mg DAILY PO 04/09/21 09:00 04/09/21 07:59 Divalproex Sodium (Depakote Sprinkles) 125 mg BID PO 04/09/21 09:00 04/09/21 21:26 I have reviewed the current psychotropics carefully including drug interactions. Risk benefit ratio favors no change other than as noted in my dictated progress note. Diagnosis: Problems: (1) Impulse control disorder (2) Anxiety disorder, unspecified (3) Major neurocognitive disorder (4) Dementia, vascular, with depression (5) Dementia, vascular, with delusions (6) Dementia in Alzheimer's disease with depression (7) Dementia in Alzheimer's disease with delusions (8) Dementia of the Alzheimer's type with early onset with behavioral disturbance GISELL GAXIOLA MD Apr 09, 2021 21:52
--- NOTE | 2021-04-09 22:01 | NUR ---
Transition Record was faxed to follow-up provider with the following elements: Reason for admission, procedures, tests, principal diagnosis, pending studies, patient instructions, 11/12 contact information for unit, phone number to obtain pending test results, plan for follow-up care, physician follow-up, advanced directive information, and medication list with dose, duration and instructions. This information was included in the following documents: History and physical, lab results, study results, progress notes, social work planning form, DC instruction form, patient visit summary, and medication reconciliation form. Date & time record faxed: 04/09/21 Record faxed to: [address] [place] [address] Record discussed with/ report given to: Jerry HERR
--- NOTE | 2021-04-10 07:36 | PDOC ---
Exam Note: Perfecto Note: This note is a late entry for 04/08/2021 covers elements not covered in my initial note. Subjective: The patient was seen individually in the evening of 04/08/2021 with Alex HERR, discussed and reviewed the chart. The patient slept 8 hours previous night. He was somewhat angry, irritable, biting staff in the morning, baring his teeth at staff, agitated, psychotic, confused. Review of Systems: Ambulation impaired. No CV, , pulmonary, eye, ENT system symptoms on review. Reliability poor. I met with him in his room. Mental Status Exam: The patient is oriented to himself. Insight and judgment, recent and remote memory, attention and concentration, fund of knowledge is poor consistent with his diagnoses. Impression: Major neurocognitive disorder, Alzheimer, vascular with delusion, depression behavioral disturbance. Anxiety disorder unspecified. Impulse control disorder unspecified. Plan: Continue current psychotropics. We will start Depakote Sprinkle 125 mg 9 a.m. and 5 p.m. for his mood lability and agitation. Check CBC, CMP, valproic acid level in 3 days. Increase Zoloft from 50 mg a day to 75 mg a day. Rest unchanged for now. Assessment: Vital Signs/I&O: Vital Signs Date Time Temp Pulse Resp B/P (MAP) Pulse Ox O2 Delivery O2 Flow Rate FiO2 04/09/21 21:27 76 149/80 04/09/21 15:29 98.0 20 95 04/09/21 05:40 Room Air I & O 04/09/21 04/09/21 04/10/21 15:00 23:00 07:00 Intake Total 240 ml 120 ml Balance 240 ml 120 ml Current Medications: Meds: Current Medications Medications (Trade) Dose Ordered Sig/Loretta Route PRN Reason Start Time Stop Time Status Last Admin Dose Admin Acetaminophen (Tylenol) 650 mg PRN Q6HRS PRN PO MILD PAIN / TEMP > 100.3'F 04/01/21 15:45 04/09/21 23:29 DC 04/09/21 21:31 Multi-Ingredient Ointment (Analgesic [place]) 1 gaurav PRN QID PRN TP MUSCLE PAIN 04/01/21 15:45 04/09/21 23:29 DC Al Hydroxide/Mg Hydroxide (Mylanta Plus Xs) 15 ml PRN AFTMEALHC PRN PO DYSPEPSIA 04/01/21 15:45 04/09/21 23:29 DC Magnesium Hydroxide (Milk Of Magnesia) 2,400 mg PRN QHS PRN PO 2nd choice CONSTIPATION 04/01/21 15:45 04/09/21 23:29 DC Aspirin (Aspirin Chewable) 81 mg DAILY PO 04/02/21 09:00 04/09/21 23:29 DC 04/09/21 07:56 Atorvastatin Calcium (Lipitor) 10 mg DAILY PO 04/02/21 09:00 04/09/21 23:29 DC 04/09/21 07:59 Bisacodyl (Dulcolax Supp) 10 mg PRN DAILY PRN RC CONSTIPATION 04/01/21 16:00 04/09/21 23:29 DC Clopidogrel Bisulfate (Plavix) 75 mg DAILY PO 04/02/21 09:00 04/09/21 23:29 DC 04/09/21 07:57 Donepezil HCl (Aricept) 10 mg DAILY PO 04/02/21 09:00 04/08/21 20:02 DC 04/08/21 08:34 Metoprolol Tartrate (Lopressor) 12.5 mg BID PO 04/01/21 21:00 04/09/21 23:29 DC 04/09/21 21:27 Niacin (Slo-Niacin) 500 mg QHS PO 04/01/21 21:00 04/09/21 23:29 DC 04/09/21 21:27 Fish Oil (Fish Oil) 2,000 mg DAILY PO 04/02/21 09:00 04/02/21 19:15 DC Polyethylene Glycol (miraLAX) 17 gm PRN DAILY PRN PO 1st choice CONSTIPATION 04/01/21 16:00 04/09/21 23:29 DC Ropinirole HCl (Requip) 0.5 mg HS PO 04/01/21 21:00 04/09/21 23:29 DC 04/09/21 21:26 Divalproex Sodium (Depakote) 375 mg TID PO 04/01/21 21:00 04/01/21 20:03 DC Melatonin (Melatonin) 9 mg QHS PO 04/01/21 21:00 04/09/21 23:29 DC 04/09/21 21:27 Psyllium Hydrophilic Mucilloid (Metamucil) 1 pkt DAILY PO 04/02/21 09:00 04/09/21 23:29 DC 04/09/21 07:56 Divalproex Sodium (Depakote Sprinkles) 375 mg TID PO 04/01/21 21:00 04/03/21 19:35 DC 04/03/21 14:00 Olanzapine (ZyPREXA ZYDIS) 2.5 mg PRN Q2HR PRN PO PSYCHOSIS 04/02/21 23:00 04/09/21 23:29 DC Sertraline HCl (Zoloft) 25 mg DAILY PO 04/03/21 09:00 04/05/21 09:01 DC 04/05/21 07:52 Sertraline HCl (Zoloft) 50 mg DAILY PO 04/06/21 09:00 04/08/21 20:02 DC 04/08/21 08:33 Amoxicillin (Amoxil) 500 mg BID PO 04/06/21 21:00 04/09/21 23:29 DC 04/09/21 21:27 Sertraline HCl (Zoloft) 75 mg DAILY PO 04/09/21 09:00 04/09/21 23:29 DC 04/09/21 07:59 Divalproex Sodium (Depakote Sprinkles) 125 mg BID PO 04/09/21 09:00 04/09/21 23:29 DC 04/09/21 21:26 Current Medications Medications (Trade) Dose Ordered Sig/Loretta Route PRN Reason Start Time Stop Time Status Last Admin Dose Admin Sertraline HCl (Zoloft) 75 mg DAILY PO 04/09/21 09:00 04/09/21 23:29 DC 04/09/21 07:59 Divalproex Sodium (Depakote Sprinkles) 125 mg BID PO 04/09/21 09:00 04/09/21 23:29 DC 04/09/21 21:26 I have reviewed the current psychotropics carefully including drug interactions. Risk benefit ratio favors no change other than as noted in my dictated progress note. Diagnosis: Problems: (1) Impulse control disorder (2) Anxiety disorder, unspecified (3) Major neurocognitive disorder (4) Dementia, vascular, with depression (5) Dementia, vascular, with delusions (6) Dementia in Alzheimer's disease with depression (7) Dementia in Alzheimer's disease with delusions (8) Dementia of the Alzheimer's type with early onset with behavioral disturbance GISELL GAXIOLA MD Apr 10, 2021 07:36
--- NOTE | 2021-04-10 07:50 | PDOC ---
Exam Note: Perfecto Note: This note is a late entry for 04/09/2021 covers elements not covered in my initial note. Subjective: The patient was seen individually in the evening of 04/09/2021 with Mili HERR, discussed and reviewed the chart. The patient slept 8-3/4 hours previous night. Overall he remains confused. Reportedly he had a fall earlier today and x-ray shows possible femur fracture. We will defer to Dr. Ortega. Review of Systems: Ambulation impaired. No CV, , pulmonary, eye, ENT system symptoms on review. Reliability poor. Mental Status Exam: The patient is oriented to himself. Insight and judgment, recent and remote memory, attention and concentration, fund of knowledge is poor consistent with his diagnoses. Impression: Major neurocognitive disorder, Alzheimer, vascular with delusion, depression behavioral disturbance. Anxiety disorder unspecified. Impulse control disorder unspecified. Plan: Continue current psychotropics. We will defer to Dr Ortega whether the patient may need transfer to [facility] for his fracture femur. Assessment: Vital Signs/I&O: Vital Signs Date Time Temp Pulse Resp B/P (MAP) Pulse Ox O2 Delivery O2 Flow Rate FiO2 04/09/21 21:27 76 149/80 04/09/21 15:29 98.0 20 95 04/09/21 05:40 Room Air I & O 04/09/21 04/09/21 04/10/21 15:00 23:00 07:00 Intake Total 240 ml 120 ml Balance 240 ml 120 ml Current Medications: Meds: Current Medications Medications (Trade) Dose Ordered Sig/Loretta Route PRN Reason Start Time Stop Time Status Last Admin Dose Admin Acetaminophen (Tylenol) 650 mg PRN Q6HRS PRN PO MILD PAIN / TEMP > 100.3'F 04/01/21 15:45 04/09/21 23:29 DC 04/09/21 21:31 Multi-Ingredient Ointment (Analgesic [place]) 1 gaurav PRN QID PRN TP MUSCLE PAIN 04/01/21 15:45 04/09/21 23:29 DC Al Hydroxide/Mg Hydroxide (Mylanta Plus Xs) 15 ml PRN AFTMEALHC PRN PO DYSPEPSIA 04/01/21 15:45 04/09/21 23:29 DC Magnesium Hydroxide (Milk Of Magnesia) 2,400 mg PRN QHS PRN PO 2nd choice CONSTIPATION 04/01/21 15:45 04/09/21 23:29 DC Aspirin (Aspirin Chewable) 81 mg DAILY PO 04/02/21 09:00 04/09/21 23:29 DC 04/09/21 07:56 Atorvastatin Calcium (Lipitor) 10 mg DAILY PO 04/02/21 09:00 04/09/21 23:29 DC 04/09/21 07:59 Bisacodyl (Dulcolax Supp) 10 mg PRN DAILY PRN RC CONSTIPATION 04/01/21 16:00 04/09/21 23:29 DC Clopidogrel Bisulfate (Plavix) 75 mg DAILY PO 04/02/21 09:00 04/09/21 23:29 DC 04/09/21 07:57 Donepezil HCl (Aricept) 10 mg DAILY PO 04/02/21 09:00 04/08/21 20:02 DC 04/08/21 08:34 Metoprolol Tartrate (Lopressor) 12.5 mg BID PO 04/01/21 21:00 04/09/21 23:29 DC 04/09/21 21:27 Niacin (Slo-Niacin) 500 mg QHS PO 04/01/21 21:00 04/09/21 23:29 DC 04/09/21 21:27 Fish Oil (Fish Oil) 2,000 mg DAILY PO 04/02/21 09:00 04/02/21 19:15 DC Polyethylene Glycol (miraLAX) 17 gm PRN DAILY PRN PO 1st choice CONSTIPATION 04/01/21 16:00 04/09/21 23:29 DC Ropinirole HCl (Requip) 0.5 mg HS PO 04/01/21 21:00 04/09/21 23:29 DC 04/09/21 21:26 Divalproex Sodium (Depakote) 375 mg TID PO 04/01/21 21:00 04/01/21 20:03 DC Melatonin (Melatonin) 9 mg QHS PO 04/01/21 21:00 04/09/21 23:29 DC 04/09/21 21:27 Psyllium Hydrophilic Mucilloid (Metamucil) 1 pkt DAILY PO 04/02/21 09:00 04/09/21 23:29 DC 04/09/21 07:56 Divalproex Sodium (Depakote Sprinkles) 375 mg TID PO 04/01/21 21:00 04/03/21 19:35 DC 04/03/21 14:00 Olanzapine (ZyPREXA ZYDIS) 2.5 mg PRN Q2HR PRN PO PSYCHOSIS 04/02/21 23:00 04/09/21 23:29 DC Sertraline HCl (Zoloft) 25 mg DAILY PO 04/03/21 09:00 04/05/21 09:01 DC 04/05/21 07:52 Sertraline HCl (Zoloft) 50 mg DAILY PO 04/06/21 09:00 04/08/21 20:02 DC 04/08/21 08:33 Amoxicillin (Amoxil) 500 mg BID PO 04/06/21 21:00 04/09/21 23:29 DC 04/09/21 21:27 Sertraline HCl (Zoloft) 75 mg DAILY PO 04/09/21 09:00 04/09/21 23:29 DC 04/09/21 07:59 Divalproex Sodium (Depakote Sprinkles) 125 mg BID PO 04/09/21 09:00 04/09/21 23:29 DC 04/09/21 21:26 Current Medications Medications (Trade) Dose Ordered Sig/Loretta Route PRN Reason Start Time Stop Time Status Last Admin Dose Admin Sertraline HCl (Zoloft) 75 mg DAILY PO 04/09/21 09:00 04/09/21 23:29 DC 04/09/21 07:59 Divalproex Sodium (Depakote Sprinkles) 125 mg BID PO 04/09/21 09:00 04/09/21 23:29 DC 04/09/21 21:26 I have reviewed the current psychotropics carefully including drug interactions. Risk benefit ratio favors no change other than as noted in my dictated progress note. Diagnosis: Problems: (1) Impulse control disorder (2) Anxiety disorder, unspecified (3) Major neurocognitive disorder (4) Dementia, vascular, with depression (5) Dementia, vascular, with delusions (6) Dementia in Alzheimer's disease with depression (7) Dementia in Alzheimer's disease with delusions (8) Dementia of the Alzheimer's type with early onset with behavioral disturbance GISELL GAXIOLA MD Apr 10, 2021 07:50
--- NOTE | 2021-04-15 17:50 | DS ---
DATE OF DISCHARGE: 04/09/2021 DISCHARGE SUMMARY/PSYCHIATRIC PROGRESS NOTE This is a late entry, date of service 04/09, covers elements not covered in my initial note 04/09. I had previously dictated this summary, but it cannot be found in the medical records and I am re-dictating it. IDENTIFYING DATA: The patient is a 76-year-old male referred to us by his primary care physician from [facility] on account of worsening confusion, agitation. He was combative with staff and with cares. He was delusional, cursing, screaming, injuring himself. The patient had failed outpatient psychiatric intervention resulting in this referral. SIGNIFICANT FINDINGS AND CLINICAL COURSE: Following admission, the patient was seen daily, individually by myself from a psychiatric standpoint, medical followup, Dr. Ortega/Dr. Mcdonald. The patient was confused, intermittently agitated, somewhat disruptive. Adjustments were being made in his psychotropics and he was on Aricept 10 mg a day, melatonin to help with his sleep, Zoloft was being increased and Zyprexa p.r.n. During this part of his hospitalization, he had a fall, developed a femur fracture and was transferred to [facility] per Dr. Ortega/Dr. Mcdonald. REVIEW OF SYSTEMS: Prior to discharge, ambulation impaired. No CV, , pulmonary, eye, ENT system symptoms on review. Reliability poor. MENTAL STATUS EXAMINATION: Oriented to himself. Insight, judgment, recent and remote memory, attention, concentration, fund of knowledge poor consistent with his diagnoses. FINAL DIAGNOSES: Major neurocognitive disorder; Alzheimer, vascular with delusion; depression; behavioral disturbance; anxiety disorder, unspecified; impulse control disorder, unspecified; status post fracture of femur post-fall. Rest unchanged from admission. DISCHARGE MEDICATIONS: Please refer to the MRAD. PSYCHIATRIC AND MEDICAL FOLLOWUP: At [facility] where the patient was transferred. Time for discharge day management greater than 30 minutes. JANUARY/ADRIAN DR: Chuck TID: [id number]
== END 2021-04-09 21:50 | disposition short-term general hospital (02) | DRG 56 ==
LOC: GEROPSY 14:55
PROVIDERS: ADMIT Psychiatry & Neurology Psychiatry; ATTEND Psychiatry & Neurology Psychiatry
DX: G30.9 Alzheimer's disease, unspecified (principal); F01.51 Vascular dementia, unspecified severity, with behavioral disturbance; N17.0 Acute kidney failure with tubular necrosis; N18.30 Chronic kidney disease, stage 3 unspecified; I42.9 Cardiomyopathy, unspecified; N39.0 Urinary tract infection, site not specified; F02.81 Dementia in other diseases classified elsewhere, unspecified severity, with behavioral disturbance; G20 Parkinson's disease; I12.9 Hypertensive chronic kidney disease with stage 1 through stage 4 chronic kidney disease, or unspecified chronic kidney disease; F91.3 Oppositional defiant disorder; Z66 Do not resuscitate; I25.10 Atherosclerotic heart disease of native coronary artery without angina pectoris; Z20.822 Contact with and (suspected) exposure to COVID-19; E78.5 Hyperlipidemia, unspecified; F32.A Depression, unspecified; F41.9 Anxiety disorder, unspecified; F63.9 Impulse disorder, unspecified; I25.2 Old myocardial infarction; Z79.899 Other long term (current) drug therapy; Z85.46 Personal history of malignant neoplasm of prostate
CPT/HCPCS: 36415; 73030; 73502; 73552; 73560; 80053; 80061; 80164; 81001; 82306; 82607; 83036; 83540; 83550; 83735; 84436; 84443; 84480; 85025; 85379; 86592; 87077; 87086; U0003; 97530